=== PATIENT | male | born 1955 | race Caucasian/White ===

== ENCOUNTER 2020-09-29 09:44 | Day surgery (SDC) | payer MEDICARE, OTHER ==
[~2020-09-29] VITALS: Ht 185.4 cm; Wt 99.8 kg
--- NOTE | 2020-09-29 10:00 | NUR ---
iv inserted 20g RAC. Blood drawn sent to the lab. Patient tolerated the procedure.
[2020-09-29 10:07] LABS: BASOPHILS # (AUTO) 0.1 /CMM (0.0-0.2); BASOPHILS % (AUTO) 1.2 % (0.0-2.0); EOSINOPHILS % (AUTO) 4.2 % (0.0-6.0); HEMATOCRIT 41 % (39-51); HEMOGLOBIN 13.7 g/dL (13.5-17.5); LYMPHOCYTES # (AUTO) 1.8 /CMM (0.8-4.8); LYMPHOCYTES % (AUTO) 31.2 % (20.0-44.0); MEAN CORPUSCULAR HGB CONC 33 g/dl (31.0-36.0); MEAN CORPUSCULAR VOLUME 81 fL (80-96); MONOCYTES # (AUTO) 0.5 /CMM (0.1-1.30); MONOCYTES % (AUTO) 9.2 % (2.0-12.0); NEUTROPHILS # (AUTO) 3.1 /CMM (1.8-8.9); NEUTROPHILS % (AUTO) 54.2 % (43.0-81.0); PLATELET COUNT (AUTO) 174 /CMM (150-450); RED BLOOD CELL COUNT(AUTO) 5.11 MIL/uL (4.5-6.0); WHITE BLOOD COUNT (AUTO) 5.8 K/uL (4.3-11.0)
[2020-09-29 10:13] LABS: CALCIUM, SERUM 9.2 mg/dL (8.5-10.1); CREATININE 0.8 mg/dL (0.6-1.3); POTASSIUM 4.4 mmol/L (3.5-5.1)
[2020-09-29 10:16] VITALS: BP 158/89
[2020-09-29 10:19] LABS: ALBUMIN 3.9 g/dL (3.4-5.0); BILIRUBIN,TOTAL 0.6 mg/dL (0.2-1.0); TOTAL PROTEIN, SERUM 7.4 g/dL (6.4-8.2)
[2020-09-29] MEDS ORDERED: LIDOCAINE HCL/MPF 1% 30 ML VIAL IJ ONE (10:45)
[2020-09-29] MEDS ORDERED: IODIXANOL 150 ML IV ONE (10:46)
[2020-09-29] MEDS ORDERED: IV NS 0.9% 1,000 ML ONE (10:46)
[2020-09-29] MEDS ORDERED: NITROGLYCERIN ICAR 1,000 MCG/10 ML VIAL ICAR ONE (11:05)
[2020-09-29] MEDS ORDERED: FENTANYL PF 100MCG/2ML AMPUL ONE (11:05)
--- NOTE | 2020-09-29 12:58 | NUR ---
MS RN ADMITTING NOTES PT TRANSPORTED TO UNIT BY [facility] AT THIS TIME. RECEIVED REPORT FROM STONEY LERMA @ SAMPLE EXAMINER. PT AOX4. NO SOB NOTED, NO S/O OF ANY ACUTE DISTRESS NOTED, NO C/O PAIN AT THIS TIME. SKIN IS INTACT AND WARM TO TOUCH, ACTIVE BOWEL SOUNDS AUSCULTATED THROUGHOUT, LUNGS ARE CLEAR TO AUSCULTATION. PT NOTED WITH TR BAND. NO SS/O BLEEDING NOTED. PULSES PRESENT BILATERALLY, CAPILLARY REFILL <3SECONDS. IV ACCESS NOTED IN RAC G#20, INTACT, PATENT AND FLUSHING WELL. SKIN INTACT. BELONGINGS ACCOUNTED FOR AND SIGNED BY PATIENT. PT ORIENTED TO ROOM AND INSTRUCTED TO CALL FOR ASSISTANTS. PT VERBALIZE UNDERSTANDING. ASPIRATION AND SAFETY PRECAUTIONS IN PLACE AND MAINTAINED AT ALL TIMES. BED IN LOWEST LOCKED POSITION, HOB ELEVATED, SIDE RAILS UP X2, CALL LIGHT AND TABLE WITHIN REACH. WILL CONTINUE TO MONITOR
--- NOTE | 2020-09-29 13:00 | NUR ---
VS BP 144/74, HR 46, RR 18, T 97.8, SPO2 96 ON RA. 3ML RELEASE FROM TR BAND, NO S/O BLEEDING NOTED. GOOD CIRCULATION NOTED, PULSES PRESENT BILATERALLY, CAPILLARY REFILL <3SECONDS. WILL CONTINUE WITH PLAN OF CARE
--- NOTE | 2020-09-29 13:15 | NUR ---
VS BP 134/72, HR 46, RR 18, T 98.8, SPO2 97 ON RA. 4ML RELEASE FROM TR BAND, NO S/O BLEEDING NOTED. GOOD CIRCULATION NOTED, PULSES PRESENT BILATERALLY, CAPILLARY REFILL <3SECONDS. WILL CONTINUE WITH PLAN OF CARE
--- NOTE | 2020-09-29 13:30 | NUR ---
VS BP 128/66 HR 44, RR 20, T 97.9, SPO2 97 ON RA. 3ML RELEASE FROM TR BAND, NO S/O BLEEDING NOTED. GOOD CIRCULATION NOTED, PULSES PRESENT BILATERALLY, CAPILLARY REFILL <3SECONDS. NO MOTOR/ SENSORY DEFICIT NOTED. WILL CONTINUE WITH PLAN OF CARE
--- NOTE | 2020-09-29 13:45 | NUR ---
VS BP 135/75 HR 44, RR 18, T 98.0, SPO2 95 ON RA. 3ML RELEASE FROM TR BAND, NO S/O BLEEDING NOTED. GOOD CIRCULATION NOTED, PULSES PRESENT BILATERALLY, CAPILLARY REFILL <3SECONDS. NO MOTOR/ SENSORY DEFICIT NOTED. WILL CONTINUE WITH PLAN OF CARE
--- NOTE | 2020-09-29 14:00 | NUR ---
VS BP 154/74 HR 42, RR 18, T 98.4, SPO2 96 ON RA. 3ML AIR RELEASE FROM TR BAND, NO S/O BLEEDING NOTED. GOOD CIRCULATION NOTED, PULSES PRESENT BILATERALLY, CAPILLARY REFILL <3SECONDS. NO MOTOR/ SENSORY DEFICIT NOTED. WILL CONTINUE WITH PLAN OF CARE. TR BAND REMOVED AFTER DEFLATION ORDER, PROCEDURE TOLERATED WELL. NO SIGNS OF COMPLICATIONS NOTED. NO SIGNS OF BLEEDING, WITH DRESSING APPLIED TO PREVIOUS INSERTION SITE.
--- NOTE | 2020-09-29 15:50 | NUR ---
COMPUTER MECHANIC NOTED PT DISCHARGE HOME AT THIS TIME. PT MEDICALLY STABLE AND CLEARED FOR DISCHARGE BY DR BLEDSOE. ALL DISCHARGE INSTRUCTIONS PROVIDED TO PT AND AT BEDSIDE. PT VERBALIZED UNDERSTANDING. PT KEPT CLEAN AND DRY. ALL BELONGINGS WITH PATIENT. TR BAND AND IV ACCESS REMOVED, PRESSURE APPLIED, SECURED WITH GAUZE AND TAPE, NO SIGN OF BLEEDING OR INFILTRATION NOTED. PT LEFT UNIT IN STABLE CONDITION, TRANSPORTED BY WHEEL CHAIR TO [facility] BY [facility]. PICKED UP BY . ANABEL, CHARGE NURSE AND DR BLEDSOE AWARE
== END 2020-09-29 15:45 | disposition home or self-care (01) ==
LOC: CATHLAB 09:44
PROVIDERS: ATTEND Internal Medicine
DX: I25.10 Atherosclerotic heart disease of native coronary artery without angina pectoris (principal); T82.855A Stenosis of coronary artery stent, initial encounter; Y71.3 Surgical instruments, materials and cardiovascular devices (including sutures) associated with adverse incidents
CPT/HCPCS: 36415; 80053; 85025; 85610; 85730; 93005; 93458; 99152; J1644; J3010; J3490; Q9967

== ENCOUNTER 2021-07-14 08:54 | Outpatient (CLI) | payer MEDICARE ==
[2021-07-14 10:04] LABS: CALCIUM, SERUM 8.6 mg/dL (8.5-10.1); POTASSIUM 4.1 mmol/L (3.5-5.1)
[2021-07-14] MEDS ORDERED: IOHEXOL-350 100 ML VIAL IV ONE (11:04)
[2021-07-14] MEDS ORDERED: IV NS 0.9% 250 ML IV ONE (11:04)
[2021-07-14] MEDS ORDERED: CT SWABBABLE VALVE TRANS SET 1 EA INFUS.SET MC ONE (11:04)
== END 2021-07-14 23:59 | disposition home or self-care (01) ==
LOC: CT 08:54
PROVIDERS: ATTEND Internal Medicine Interventional Cardiology
DX: K80.20 Calculus of gallbladder without cholecystitis without obstruction (principal); K57.30 Diverticulosis of large intestine without perforation or abscess without bleeding; I25.10 Atherosclerotic heart disease of native coronary artery without angina pectoris; I51.7 Cardiomegaly; J98.11 Atelectasis; J90 Pleural effusion, not elsewhere classified; R94.4 Abnormal results of kidney function studies; I70.0 Atherosclerosis of aorta; M46.00 Spinal enthesopathy, site unspecified; R60.1 Generalized edema
CPT/HCPCS: 36415; 74174; 80048; J7050; Q9967

== ENCOUNTER 2021-08-04 13:00 | Inpatient (IN) | payer MEDICARE, OTHER ==
[~2021-08-04] VITALS: Ht 185.4 cm; Wt 99.8 kg
--- NOTE | 2021-08-04 13:00 | NUR ---
DR FUNES AT BEDSIDE
[2021-08-04] MEDS ORDERED: FUROSEMIDE 40 MG/4 ML VIAL ONE (13:12)
[2021-08-04] MEDS ORDERED: FUROSEMIDE 40 MG/4 ML VIAL IV ONE (13:30)
[2021-08-04 13:42] LABS: BASOPHILS # (AUTO) 0.1 K/uL (0.0-0.2); BASOPHILS % (AUTO) 1.2 % (0.0-2.0); EOSINOPHILS % (AUTO) 0.9 % (0.0-6.0); HEMATOCRIT 42 % (39-51); HEMOGLOBIN 13.2 g/dL (13.5-17.5); LYMPHOCYTES # (AUTO) 1.1 K/uL (0.8-4.8); LYMPHOCYTES % (AUTO) 15.9 % (20.0-44.0); MEAN CORPUSCULAR HGB CONC 32 g/dl (31.0-36.0); MEAN CORPUSCULAR VOLUME 81 fL (80-96); MONOCYTES # (AUTO) 0.7 K/uL (0.1-1.30); MONOCYTES % (AUTO) 10.7 % (2.0-12.0); NEUTROPHILS # (AUTO) 4.8 K/uL (1.8-8.9); NEUTROPHILS % (AUTO) 71.3 % (43.0-81.0); PLATELET COUNT (AUTO) 177 K/uL (150-450); RED BLOOD CELL COUNT(AUTO) 5.18 MIL/uL (4.5-6.0); WHITE BLOOD COUNT (AUTO) 6.7 K/uL (4.3-11.0)
[2021-08-04 14:06] LABS: CALCIUM, SERUM 8.9 mg/dL (8.5-10.1); CARBON DIOXIDE 33 mmol/L (21-32); CHLORIDE 95 mmol/L (98-107); CREATININE 1.2 mg/dL (0.6-1.3); GLUCOSE 148 mg/dL (74-106); POTASSIUM 3.4 mmol/L (3.5-5.1); SODIUM SERUM 136 mmol/L (136-145); UREA NITROGEN, BLOOD 18 mg/dL (7-18)
[2021-08-04] MEDS ORDERED: AMOX500C2 PO (14:13)
[2021-08-04] MEDS ORDERED: ISOS60TA72 PO (14:13)
[2021-08-04] MEDS ORDERED: METO5TAB2 PO (14:13)
[2021-08-04] MEDS ORDERED: SITA100T PO (14:13)
[2021-08-04] MEDS ORDERED: FAMO40TA7 PO (14:13)
[2021-08-04] MEDS ORDERED: EMPA25TA PO (14:13)
[2021-08-04] MEDS ORDERED: OMEP40CA21 PO (14:13)
[2021-08-04] MEDS ORDERED: GABA-532 PO (14:13)
[2021-08-04] MEDS ORDERED: FURO80TA85 PO (14:13)
[2021-08-04] MEDS ORDERED: FLUT1BLS PO (14:13)
[2021-08-04] MEDS ORDERED: FINA5TAB11 PO (14:13)
[2021-08-04] MEDS ORDERED: TESTOSTERONE PO (14:13)
[2021-08-04] MEDS ORDERED: LEVO100T9 PO (14:13)
--- NOTE | 2021-08-04 14:16 | NUR ---
CALLED NURSING SUP REGARDING PT BED
[2021-08-04 14:17] LABS: ALANINE AMINOTRANSFERASE 22 U/L (12-78); ALBUMIN 3.9 g/dL (3.4-5.0); ALKALINE PHOSPHATASE 158 U/L (46-116); ASPARTATE AMINOTRANSFERASE 19 U/L (15-37); BILIRUBIN,DIRECT 0.5 mg/dL (0.0-0.2); BILIRUBIN,TOTAL 1.2 mg/dL (0.2-1.0); TOTAL PROTEIN, SERUM 7.6 g/dL (6.4-8.2)
--- NOTE | 2021-08-04 14:20 | NUR ---
RAPID COVID SWAB DONE AND SENT TO LAB
[2021-08-04] MEDS ORDERED: MAG HYDROX/AL HYDROX/SIMETH 30 ML UDC PO PRN (14:30)
[2021-08-04] MEDS ORDERED: Z GUARD REMEDY 4 OZ OINT TP PRN (14:30)
[2021-08-04] MEDS ORDERED: ACETAMINOPHEN 325 MG TABLET PO PRN (14:30)
[2021-08-04] MEDS ORDERED: MAGNESIUM HYDROXIDE 30 ML UDC PO PRN (14:30)
--- NOTE | 2021-08-04 16:42 | NUR ---
ROOM 322-2
[2021-08-04] MEDS ORDERED: FUROSEMIDE 40 MG/4 ML VIAL IV SCH (17:00)
--- NOTE | 2021-08-04 17:09 | NUR ---
REPORT GIVEN TO AJKE LUA OF TELE UNIT
--- NOTE | 2021-08-04 17:45 | NUR ---
ETCHER APPRENTICE PHOTOENGRAVING NOTE RECEIVED PATIENT FROM ER TRANSPORTED VIA GURNEY ACCOMPANIED BY 2 NURSES. PATIENT IS ALERT AND ORIENTED X4. ON ROOM AIR WITH NO SIGNS OF DISTRESS NOTED. PATIENT WITH RIGHT AC G18, ON SALINE LOCK, PATENT AND INTACT. NOTED BOTH LOWER EXTREMITY NON-PITTING EDEMA. COMFORT MEASURES PROVIDED. ON MODERATE TO HIGH BACK REST. ENCOURAGED TO DO DEEP BREATHING EXERCISES. MD NOTIFIED OF ADMISSION. SAFETY MEASURES ENSURED WITH SIDERAILS RAISED FOR SAFETY, BED ON LOWEST LOCKED POSITION, CALL LIGHT WITHIN REACH AT ALL TIMES. WILL CONTINUE TO MONITOR PATIENT.
--- NOTE | 2021-08-04 19:16 | NUR ---
DIRECTOR OF MARKETING OPERATIONS CLOSING NOTE PATIENT IS ALERT AND ORIENTED X4. ON ROOM AIR WITH NO SIGNS OF DISTRESS NOTED. PATIENT WITH RIGHT AC G18, ON SALINE LOCK, PATENT AND INTACT. ON DUPLICATING MACHINE OPERATOR, READING SINUS WITH FIRST DEGREE BLOCK. NOTED BOTH LOWER EXTREMITY NON-PITTING EDEMA. COMFORT MEASURES PROVIDED. ON MODERATE TO HIGH BACK REST. ENCOURAGED TO DO DEEP BREATHING EXERCISES. FUROSEMIDE GIVEN ORDERED. VS WNL. SAFETY MEASURES ENSURED WITH SIDERAILS RAISED FOR SAFETY, BED ON LOWEST LOCKED POSITION, CALL LIGHT WITHIN REACH AT ALL TIMES. WILL ENDORSE PATIENT FOR CONTINUITY OF CARE.
[2021-08-04 20:00] VITALS: BP 109/75
--- NOTE | 2021-08-04 20:05 | NUR ---
TRUCKLOAD CHECKER OPENING NOTES: RECEIVED PATIENT AWAKE IN BED, BED IN LOW POSITION CALL LIGHTS WITHIN REACH, NO COMPLAIN OF PAIN AND DISCOMFORT AT THIS TIME, PATIENT IS A/OX4 BRP, ON TELE MONITORING SR-88 WITH BBB AND PVC PATIENT IS ASYMPTOMATIC, PATIENT, ON ROOM AIR SATURATING WELL, REMIND PATIENT TO USE THE CALL LIGHTS WHEN NEEDED ASSISTANCE, PATIENT KEPT CLEAN AND DRY ALL NEEDS MET WILL CONTINUE TO MONITOR.
[2021-08-04 21:17] VITALS: BP 109/75
[2021-08-04] MEDS: MORPHINE SULFATE INJ 2 MG/ML DISP.SYRIN IV PRN (23:13)
[2021-08-05] VITALS (8 sets, daily range): BP systolic 97–137; BP diastolic 58–100
[2021-08-05] MEDS: MORPHINE SULFATE INJ 2 MG/ML DISP.SYRIN IV PRN (04:18)
--- NOTE | 2021-08-05 06:25 | NUR ---
SERVICES MANAGER CLOSING NOTES:322 PATIENT AWAKE IN BED, NO COMPLAIN OF PAIN AND DISCOMFORT PATIENT IS A/OX4 AMBULATORY ABLE TO EXPRESS NEEDS, WITH IV LINE AT RAC#18 SL, ON TELE MONITORING -, SR 73 WITH BBB ON O2 INHALATION AT 2LPM SATURATING WELL, PATIENT KEPT CLEAN AND DRY ALL NEEDS MET ENDORSE TO INCOMING SHIFT.
[2021-08-05 06:36] LABS: CALCIUM, SERUM 9.1 mg/dL (8.5-10.1); CREATININE 1.4 mg/dL (0.6-1.3); MAGNESIUM 2.9 mg/dL (1.8-2.4); PHOSPHORUS 5.4 mg/dL (2.5-4.9); POTASSIUM 3.4 mmol/L (3.5-5.1)
[2021-08-05 07:31] LABS: BASOPHILS # (AUTO) 0.1 K/uL (0.0-0.2); EOSINOPHILS % (AUTO) 0.4 % (0.0-6.0); HEMATOCRIT 43 % (39-51); HEMOGLOBIN 13.5 g/dL (13.5-17.5); LYMPHOCYTES # (AUTO) 1.3 K/uL (0.8-4.8); LYMPHOCYTES % (AUTO) 18.2 % (20.0-44.0); MEAN CORPUSCULAR HGB CONC 32 g/dl (31.0-36.0); MEAN CORPUSCULAR VOLUME 81 fL (80-96); MONOCYTES # (AUTO) 0.8 K/uL (0.1-1.30); MONOCYTES % (AUTO) 11.5 % (2.0-12.0); NEUTROPHILS # (AUTO) 4.9 K/uL (1.8-8.9); NEUTROPHILS % (AUTO) 68.9 % (43.0-81.0); PLATELET COUNT (AUTO) 192 K/uL (150-450); RED BLOOD CELL COUNT(AUTO) 5.26 MIL/uL (4.5-6.0); WHITE BLOOD COUNT (AUTO) 7.2 K/uL (4.3-11.0)
--- NOTE | 2021-08-05 07:38 | NUR ---
RN OPENING NOTES PATIENT AWAKE IN BED RESTING, A/O X4. NO S/S OF PAIN NOTED AT THIS TIME. PATIENT ON ROOM AIR, NO DISTRESS OR SHORTNESS OF BREATH. IV ACCESS RAC #18G INTACT, PATENT AND FLUSHING WELL. PATIENT HAS AN EXTERNAL BUILDING TRADES TEACHER CURRENT READING OF S.R WITH BBB AND PVC, HR OF 88. FALL AND SAFETY MEASURES IN PLACE, BED ALARM ON, BED IN LOW AND LOCK POSITION, CALL LIGHT AND TABLE WITHIN EASY REACH, SIDE RAILS UP X2. WILL CONTINUE TO MONITOR.
[2021-08-05] MEDS: PANTOPRAZOLE 40 MG TABLET.DR PO SCH (08:02)
[2021-08-05] MEDS: LEVOTHYROXINE SODIUM 100 MCG TABLET PO SCH (08:02)
[2021-08-05] MEDS: ONDANSETRON HCL/PF 4 MG/2 ML VIAL IVP PRN ×2 (09:14→15:39)
[2021-08-05] MEDS: FLUTICASONE/VILANTEROL 1 EACH BLST.W.DEV IH SCH (09:17)
[2021-08-05] MEDS: ISOSORBIDE MONONITRATE (30MG) 30 MG TAB.SR.24H PO SCH (09:18)
[2021-08-05] MEDS: LINAGLIPTIN 5 MG TABLET PO SCH (09:18)
[2021-08-05] MEDS: METOCLOPRAMIDE HCL 10 MG TABLET PO SCH ×2 (09:18→17:21)
[2021-08-05] MEDS: POTASSIUM CHLORIDE 20 MEQ TAB.PRT.SR PO SCH ×3 (09:18→12:43)
[2021-08-05] MEDS: GABAPENTIN 100 MG CAPSULE PO SCH ×2 (09:19→17:21)
[2021-08-05] MEDS: FUROSEMIDE 100 MG/10 ML VIAL IV SCH ×3 (09:26→17:20)
--- NOTE | 2021-08-05 09:30 | NUR ---
RN NOTE LAB CALLED WITH CRITICAL LAB VALUE, PATIENT HAVE TROPONIN I HIGH SENSE: 831. DR. FERNANDES WAS INFORMED AND HE ORDERED ANOTHER TROPONIN IN 3 HOURS.
[2021-08-05] MEDS: JARDIANCE 25 MG PO SCH (14:26)
--- NOTE | 2021-08-05 14:49 | NUR ---
RN NOTE PATIENT LAST TROPONIN WAS 1354, DR. FERNANDES WAS INFORMED AND HE ORDERED LOVENOX 1MG/KG BID.
[2021-08-05] MEDS: ENOXAPARIN SODIUM 100 MG/ML DISP.SYRIN SQ SCH (15:37)
--- NOTE | 2021-08-05 18:46 | NUR ---
RN CLOSING NOTES PATIENT AWAKE IN BED RESTING, A/O X4. NO S/S OF PAIN NOTED AT THIS TIME. PATIENT ON ROOM AIR, NO DISTRESS OR SHORTNESS OF BREATH. IV ACCESS RAC #18G INTACT, PATENT AND FLUSHING WELL. PATIENT HAS AN EXTERNAL COMPO CASTER CURRENT READING OF S.R WITH BBB AND PVC, HR OF 57. PATIENT URINE OUTPUT DURING SHIFT WAS 1000ML. FALL AND SAFETY MEASURES IN PLACE, BED ALARM ON, BED IN LOW AND LOCK POSITION, CALL LIGHT AND TABLE WITHIN EASY REACH, SIDE RAILS UP X2. WILL ENDORSE TO DINING SERVICES DIRECTOR.
--- NOTE | 2021-08-05 19:05 | NUR ---
RN NOTES: -RECEIVED ASLEEP ON BED, PER ENDORSEMENT HE IS A/OX4, ON TELE MONITOR SB-BBB WITH ST DEPRESSION RATE-59, NO PAIN OR DISCOMFORT AT THIS TIME.HE IS AMBULATORY, RAC G#18 INTACT, NO ABDOMINAL PAIN PER MORNING SHIFT HE RECEIVED ZOFRAN PRN. -HE WAS AWAKEN AND RN INTRODUCE HERSELF,ORIENTED TO UNIT AND STAFF, VERY PLEASANT MOOD, FOR MORNING LABS TOMORROW. FALL,SAFETY AND ASPIRATION PRECAUTION OBSERVED.
[2021-08-05] MEDS: FAMOTIDINE (20 MG) 20 MG TABLET PO SCH (21:46)
[2021-08-05] MEDS: FINASTERIDE (5 MG) 5 MG TABLET PO SCH (21:47)
--- NOTE | 2021-08-05 23:58 | NUR ---
RN NOTES: AWAKE, NO COMPLAINTS OF PAIN OR ANY DISCOMFORT, NO DIZZINESS, BP IS 90/67, HE SIT ON THE EDGE OF THE BED AND DANGLE HIS FEET DOWN, GIVEN 1 GLASS OF WATER, THEN HE RETURNED BACK TO SLEEP.
[2021-08-06] VITALS: BP 90/67
[2021-08-06] MEDS: ENOXAPARIN SODIUM 100 MG/ML DISP.SYRIN SQ SCH ×2 (02:07→15:43)
[2021-08-06 04:00] VITALS: BP 102/63
[2021-08-06] MEDS: LEVOTHYROXINE SODIUM 100 MCG TABLET PO SCH (06:10)
[2021-08-06 07:20] LABS: BASOPHILS # (AUTO) 0.1 K/uL (0.0-0.2); BASOPHILS % (AUTO) 1.2 % (0.0-2.0); HEMATOCRIT 40 % (39-51); HEMOGLOBIN 12.9 g/dL (13.5-17.5); LYMPHOCYTES # (AUTO) 1.7 K/uL (0.8-4.8); LYMPHOCYTES % (AUTO) 23.2 % (20.0-44.0); MEAN CORPUSCULAR HGB CONC 32 g/dl (31.0-36.0); MEAN CORPUSCULAR VOLUME 80 fL (80-96); MONOCYTES # (AUTO) 0.9 K/uL (0.1-1.30); MONOCYTES % (AUTO) 12.5 % (2.0-12.0); NEUTROPHILS # (AUTO) 4.5 K/uL (1.8-8.9); NEUTROPHILS % (AUTO) 62.1 % (43.0-81.0); PLATELET COUNT (AUTO) 171 K/uL (150-450); RED BLOOD CELL COUNT(AUTO) 4.99 MIL/uL (4.5-6.0); WHITE BLOOD COUNT (AUTO) 7.3 K/uL (4.3-11.0)
--- NOTE | 2021-08-06 07:22 | NUR ---
RN NOTES: AWAKE IN BETWEEN, HE SITS BY THE BED SIDE CHAIR, O2 INHALATION CONTINUE, NO CHEST PAIN, NEEDS ATTENDED, V/S REMAIN STABLE, FOR CXR AND LABS THIS MORNING, F/U ECHO RESULT, ADEQUATE URINE OUTPUT-1,40O, BBB WITH ST DEPRESSION RATE=62.ENDORSED FOR CONTINUITY OF CARE.
--- NOTE | 2021-08-06 07:33 | NUR ---
RN OPENING NOTES PATIENT AWAKE IN BED RESTING, A/O X4. NO S/S OF PAIN NOTED AT THIS TIME. PATIENT ON ROOM AIR, NO DISTRESS OR SHORTNESS OF BREATH. IV ACCESS RAC #18G INTACT, PATENT AND FLUSHING WELL. PATIENT HAS AN EXTERNAL VESSEL SCRAPPER HELPER CURRENT READING OF S.R WITH BBB AND PVC, HR OF 59. FALL AND SAFETY MEASURES IN PLACE, BED ALARM ON, BED IN LOW AND LOCK POSITION, CALL LIGHT AND TABLE WITHIN EASY REACH, SIDE RAILS UP X2. WILL CONTINUE TO MONITOR.
[2021-08-06 07:59] LABS: ALBUMIN 3.5 g/dL (3.4-5.0); BILIRUBIN,TOTAL 1.3 mg/dL (0.2-1.0); CALCIUM, SERUM 8.7 mg/dL (8.5-10.1); CREATININE 1.5 mg/dL (0.6-1.3); MAGNESIUM 2.9 mg/dL (1.8-2.4); POTASSIUM 4.4 mmol/L (3.5-5.1); TOTAL PROTEIN, SERUM 6.6 g/dL (6.4-8.2)
[2021-08-06] MEDS: FLUTICASONE/VILANTEROL 1 EACH BLST.W.DEV IH SCH (08:59)
[2021-08-06] MEDS: GABAPENTIN 100 MG CAPSULE PO SCH ×2 (08:59→17:25)
[2021-08-06] MEDS: METOCLOPRAMIDE HCL 10 MG TABLET PO SCH ×2 (08:59→17:25)
[2021-08-06] MEDS: PANTOPRAZOLE 40 MG TABLET.DR PO SCH (09:02)
[2021-08-06] MEDS: LINAGLIPTIN 5 MG TABLET PO SCH (09:02)
[2021-08-06] MEDS: FUROSEMIDE 100 MG/10 ML VIAL IV SCH ×3 (09:54→17:26)
[2021-08-06] MEDS: ISOSORBIDE MONONITRATE (30MG) 30 MG TAB.SR.24H PO SCH (09:54)
--- NOTE | 2021-08-06 11:00 | NUR ---
RN NOTE LAB CALLED WITH CRITICAL LAB VALUE, PATIENT HAVE TROPONIN I HIGH SENSE: 2260. DR. FERNANDES WAS INFORMED AND NO NEW ORDERS AT THIS MOMENT.
[2021-08-06] MEDS: JARDIANCE 25 MG PO SCH (13:20)
--- NOTE | 2021-08-06 13:21 | NUR ---
RN NOTES PATIENT HOME MEDICATION JARDIANCE WAS GIVEN LATE BECAUSE PATIENT MEDICATION WAS NOT IN THE PATENT MEDICATION BOX, PHARMACY WAS CALLED AND MEDICATION WAS GIVEN WHEN THE MEDICATION WAS DELIVERED.
--- NOTE | 2021-08-06 17:50 | NUR ---
RN NOTE PATIENT COMPLAINED OF CHEST PAIN, EKG WAS ORDERED AND SENT PICTURES TO DR. FERNANDES, DR. FERNANDES WAS NOTIFIED OF PATIENT EPISODE OF CHEST PAIN, V/S BP:101/59, P:70, R:19, T:98.1, O2:97, IN TELE MONITOR PATIENT IS S.R. HR OF 72. AT THE MOMENT PATIENT IS COMFORTABLE IN ROOM EATING HIS DINNER. NO NEW ORDERS PER DR. FERNANDES AT THIS MOMENT. WILL CONTINUE TO MONITOR.
--- NOTE | 2021-08-06 18:53 | NUR ---
RN CLOSING NOTES PATIENT AWAKE IN BED RESTING, A/O X4. NO S/S OF PAIN NOTED AT THIS TIME. PATIENT ON ROOM AIR, NO DISTRESS OR SHORTNESS OF BREATH. IV ACCESS RAC #18G INTACT, PATENT AND FLUSHING WELL. PATIENT HAS AN EXTERNAL NARROW FABRIC CALENDERER CURRENT READING OF S.R WITH BBB AND PVC, HR OF 76. PATIENT URINE OUTPUT DURING SHIFT WAS 800ML. FALL AND SAFETY MEASURES IN PLACE, BED ALARM ON, BED IN LOW AND LOCK POSITION, CALL LIGHT AND TABLE WITHIN EASY REACH, SIDE RAILS UP X2. WILL ENDORSE TO DISHING MACHINE OPERATOR.
[2021-08-06 20:30] VITALS: BP 112/67
[2021-08-06] MEDS: FINASTERIDE (5 MG) 5 MG TABLET PO SCH (21:15)
[2021-08-06] MEDS: FAMOTIDINE (20 MG) 20 MG TABLET PO SCH (21:15)
[2021-08-07] MEDS: ENOXAPARIN SODIUM 100 MG/ML DISP.SYRIN SQ SCH ×2 (03:55→14:11)
[2021-08-07 04:21] VITALS: BP 98/57
[2021-08-07 06:17] LABS: BASOPHILS # (AUTO) 0.1 K/uL (0.0-0.2); EOSINOPHILS % (AUTO) 2.2 % (0.0-6.0); HEMATOCRIT 39 % (39-51); HEMOGLOBIN 12.4 g/dL (13.5-17.5); LYMPHOCYTES # (AUTO) 1.9 K/uL (0.8-4.8); LYMPHOCYTES % (AUTO) 25.7 % (20.0-44.0); MEAN CORPUSCULAR HGB CONC 32 g/dl (31.0-36.0); MEAN CORPUSCULAR VOLUME 81 fL (80-96); MONOCYTES # (AUTO) 0.9 K/uL (0.1-1.30); MONOCYTES % (AUTO) 12.9 % (2.0-12.0); NEUTROPHILS # (AUTO) 4.2 K/uL (1.8-8.9); NEUTROPHILS % (AUTO) 57.2 % (43.0-81.0); PLATELET COUNT (AUTO) 156 K/uL (150-450); RED BLOOD CELL COUNT(AUTO) 4.79 MIL/uL (4.5-6.0); WHITE BLOOD COUNT (AUTO) 7.3 K/uL (4.3-11.0)
[2021-08-07] MEDS: PANTOPRAZOLE 40 MG TABLET.DR PO SCH (06:38)
[2021-08-07] MEDS: LEVOTHYROXINE SODIUM 100 MCG TABLET PO SCH (06:38)
--- NOTE | 2021-08-07 06:59 | NUR ---
Patient has been A&Ox4 overnight. states he is feeling much better than the day of admission. denies CP or SOB, only states that he feels a little fatigued. SR with trigeminy BBB on the monitor overnight. 227 daily weight. intake 300ml output 1100ml. Currently resting in bed with no signs of distress. Denies pain or discomfort.
[2021-08-07 07:24] LABS: ALBUMIN 3.1 g/dL (3.4-5.0); CREATININE 1.5 mg/dL (0.6-1.3); MAGNESIUM 2.8 mg/dL (1.8-2.4); PHOSPHORUS 4.2 mg/dL (2.5-4.9); POTASSIUM 3.4 mmol/L (3.5-5.1); TOTAL PROTEIN, SERUM 6.2 g/dL (6.4-8.2)
--- NOTE | 2021-08-07 07:30 | NUR ---
RN OPENING NOTES PATIENT AWAKE IN SITTING AT EDGE OF BED. A/O X4. NO S/S OF PAIN NOTED AT THIS TIME. PATIENT ON ROOM AIR, NO DISTRESS OR SHORTNESS OF BREATH. IV ACCESS RAC #18G PATENT AND INTACT, FLUSHING WELL. PATIENT HAS AN EXTERNAL NETWORK ENGINEERING ADVISOR CURRENT READING OF SR 76. FALL AND SAFETY MEASURES IN PLACE, BED ALARM ON, BED IN LOW AND LOCK POSITION, CALL LIGHT AND TABLE WITHIN EASY REACH, SIDE RAILS UP X2. WILL CONTINUE TO MONITOR PT THROUGHOUT SHIFT.
--- NOTE | 2021-08-07 07:42 | NUR ---
RN NOTE RECEIVED CALL FROM ED, LAB. CRITICAL LAB VALUE REPORTED: TROPONIN 995. MD AND CHARGE NURSE NOTIFIED.
[2021-08-07 08:00] VITALS: BP 111/82
[2021-08-07] MEDS: FLUTICASONE/VILANTEROL 1 EACH BLST.W.DEV IH SCH (08:49)
[2021-08-07] MEDS: METOCLOPRAMIDE HCL 10 MG TABLET PO SCH ×2 (08:49→16:23)
[2021-08-07] MEDS: LINAGLIPTIN 5 MG TABLET PO SCH (08:49)
[2021-08-07] MEDS: JARDIANCE 25 MG PO SCH (08:49)
[2021-08-07] MEDS: GABAPENTIN 100 MG CAPSULE PO SCH ×2 (08:49→16:23)
[2021-08-07] MEDS: ISOSORBIDE MONONITRATE (30MG) 30 MG TAB.SR.24H PO SCH (08:51)
[2021-08-07] MEDS: POTASSIUM CHLORIDE 20 MEQ TAB.PRT.SR PO SCH ×3 (09:46→10:53)
[2021-08-07] MEDS: FUROSEMIDE 100 MG/10 ML VIAL IV SCH ×3 (09:47→16:23)
[2021-08-07 12:00] VITALS: BP 108/62
[2021-08-07 16:00] VITALS: BP 111/78
--- NOTE | 2021-08-07 18:46 | NUR ---
RN CLOSING NOTES PATIENT IS AWAKE IN BED WITH ECHOCARDIOGRAM CURRENTLY BEING DONE AT BEDSIDE. NO SIGNIFICANT CHANGE DURING SHIFT. GARAGE DOOR OPENER INSTALLER REPORTED OCCASIONAL PVCS. PTS CURRENT TELE MONITOR READING IS SR WITH PVC CUPLETS. IV ACCESS RAC #18G PATENT AND INTACT, FLUSHING WELL. FALL AND SAFETY MEASURES MAINTAINED. CALL LIGHT AND TABLE WITHIN EASY REACH, SIDE RAILS UP X2. WILL ENDORSE CONTINUITY OF CARE TO ONCOMING SHIFT.
--- NOTE | 2021-08-07 19:40 | NUR ---
Patient is A&Ox4, no signs of distress. However, patient does say he gets SOB upon exertion but feels much better and customs brokerage agent than a couple days ago. Feels tired after a long day and wants to sleep well tonight per patient. Will continue to monitor.
[2021-08-07 20:00] VITALS: BP 110/78
[2021-08-07] MEDS: FINASTERIDE (5 MG) 5 MG TABLET PO SCH (20:12)
[2021-08-07] MEDS: FAMOTIDINE (20 MG) 20 MG TABLET PO SCH (20:12)
--- NOTE | 2021-08-07 20:12 | NUR ---
Per patient request HS meds given early because pt. wants to be asleep before 9pm.
--- NOTE | 2021-08-08 | NUR ---
Patient refusing midnight vitals says he is trying to get a good night of sleep. States he feels fine.
[2021-08-08] MEDS: ENOXAPARIN SODIUM 100 MG/ML DISP.SYRIN SQ SCH (02:16)
[2021-08-08 04:00] VITALS: BP_SYST 121; BP_SYST 144; BP_DIAS 73; BP_DIAS 85
[2021-08-08] MEDS: LEVOTHYROXINE SODIUM 100 MCG TABLET PO SCH (06:34)
[2021-08-08] MEDS: PANTOPRAZOLE 40 MG TABLET.DR PO SCH (06:34)
--- NOTE | 2021-08-08 06:36 | NUR ---
Patient stable still A&Ox4. Just woke up. States he feels fine but tired and fatigued. Sb/SR with BBB and PVC bigeminy at times. RAC #18G still intact and patent. No overnight events. Daily weight 223.5. Intake 450 output 800mL.
[2021-08-08 06:42] LABS: BASOPHILS # (AUTO) 0.1 K/uL (0.0-0.2); BASOPHILS % (AUTO) 1.3 % (0.0-2.0); EOSINOPHILS % (AUTO) 2.4 % (0.0-6.0); HEMATOCRIT 39 % (39-51); HEMOGLOBIN 12.1 g/dL (13.5-17.5); LYMPHOCYTES # (AUTO) 1.6 K/uL (0.8-4.8); LYMPHOCYTES % (AUTO) 24.5 % (20.0-44.0); MEAN CORPUSCULAR HGB CONC 32 g/dl (31.0-36.0); MEAN CORPUSCULAR VOLUME 81 fL (80-96); MONOCYTES # (AUTO) 0.9 K/uL (0.1-1.30); MONOCYTES % (AUTO) 13.6 % (2.0-12.0); NEUTROPHILS # (AUTO) 3.8 K/uL (1.8-8.9); NEUTROPHILS % (AUTO) 58.2 % (43.0-81.0); PLATELET COUNT (AUTO) 154 K/uL (150-450); RED BLOOD CELL COUNT(AUTO) 4.75 MIL/uL (4.5-6.0); WHITE BLOOD COUNT (AUTO) 6.5 K/uL (4.3-11.0)
[2021-08-08 07:19] LABS: ALBUMIN 3.2 g/dL (3.4-5.0); CALCIUM, SERUM 8.3 mg/dL (8.5-10.1); CREATININE 1.2 mg/dL (0.6-1.3); MAGNESIUM 2.8 mg/dL (1.8-2.4); POTASSIUM 3.2 mmol/L (3.5-5.1); TOTAL PROTEIN, SERUM 6.2 g/dL (6.4-8.2)
[2021-08-08 08:28] VITALS: BP 126/92
[2021-08-08] MEDS: JARDIANCE 25 MG PO SCH (08:38)
[2021-08-08] MEDS: GABAPENTIN 100 MG CAPSULE PO SCH ×2 (08:38→17:02)
[2021-08-08] MEDS: FLUTICASONE/VILANTEROL 1 EACH BLST.W.DEV IH SCH (08:38)
[2021-08-08] MEDS: LINAGLIPTIN 5 MG TABLET PO SCH (08:39)
[2021-08-08] MEDS: METOCLOPRAMIDE HCL 10 MG TABLET PO SCH ×2 (08:40→17:01)
[2021-08-08] MEDS: ISOSORBIDE MONONITRATE (30MG) 30 MG TAB.SR.24H PO SCH (08:40)
--- NOTE | 2021-08-08 10:22 | NUR ---
PRINCIPAL ARCHAEOLOGIST OPENING NOTES RECEIVED PATIENT IN BED, AWAKE, A/O X4. ABLE TO MAKE NEEDS KNOWN. ON ROOM AIR, TOLERATING WELL WITH NO SOB NOTED AT THIS TIME. RAC IV ACCESS G # 18 INTACT, PATENT AND FLUSHES WELL. ALL NEEDS AND CARE ATTENDED WELL. SAFETY PRECAUTIONS IN PLACE: BED IN LOWEST LOCKED POSITION, SIDE-RAILS UPx2, TRAY TABLE AND CALL LIGHT WITHIN EASY REACH OF PT. WILL CONTINUE TO MONITOR PATIENT.
[2021-08-08 12:13] VITALS: BP 104/73
[2021-08-08] MEDS: FUROSEMIDE 40 MG/4 ML VIAL IV SCH ×3 (13:26→20:51)
[2021-08-08] MEDS: POTASSIUM CHLORIDE 20 MEQ TAB.PRT.SR PO SCH ×5 (13:30→17:56)
[2021-08-08 16:33] VITALS: BP 114/76
--- NOTE | 2021-08-08 19:25 | NUR ---
AIRLINE STEWARDESS CLOSING NOTES PATIENT IN BED, AWAKE, A/O X4. ABLE TO MAKE NEEDS KNOWN. ON ROOM AIR, TOLERATING WELL WITH NO SOB NOTED DURING SHIFT. RAC IV ACCESS G # 18 INTACT, PATENT AND FLUSHES WELL. NPO AFTER MIDNIGHT. ALL NEEDS AND CARE ATTENDED DURING THE DAY. SAFETY PRECAUTIONS IN PLACE: BED IN LOWEST LOCKED POSITION, SIDE-RAILS UPx2, TRAY TABLE AND CALL LIGHT WITHIN EASY REACH OF PT. WILL ENDORSE TO JET INSPECTOR NURSE FOR TANK.
[2021-08-08 20:00] VITALS: BP 106/70
--- NOTE | 2021-08-08 20:30 | NUR ---
MANAGER MASSAGE DEPARTMENT OPENING NOTES:l RECEIVED PATIENT AWAKE IN BED, BED IN LOW POSITION, CALL LIGHTS WITHIN REACH, NO COMPLAIN OF PAIN AND DISCOMFORT AT THIS TIME, PATIENT WAS A/OX4 ABLE TO EXPRESS NEEDS, ON TELE MONITORING SR -66 WITH BBB AND PVC, PATIENT ON ROOM AIR SATURATING WELL, ON NPO PATIENT KEPT CLEAN AND DRY ALL NEEDS MET WILL CONTINUE TO MONITOR.
[2021-08-08] MEDS: FINASTERIDE (5 MG) 5 MG TABLET PO SCH (22:01)
[2021-08-08] MEDS: FAMOTIDINE (20 MG) 20 MG TABLET PO SCH (22:02)
--- NOTE | 2021-08-08 22:30 | NUR ---
RN NOTES: REMIND RESIDENT ON NPO EXPLAINED POSSIBLE CATHETERIZATION IN PATIENT REFUSED TO SIGN CONSENT UNLESS THERE IS A SPECIFIC SCHEDULE ON CATH TOMORROW. CHARGE NURSE ALSO CONVINCE PATIENT DURING ROUNDS BUT REFUSED. TO CONSENT.
[2021-08-09] VITALS (11 sets, daily range): BP systolic 94–133; BP diastolic 25–90
--- NOTE | 2021-08-09 07:35 | NUR ---
SUPERVISOR FIBER LOCKING OPENING NOTES PATIENT RESTING IN BED, ABLE TO BE WAKEN. A/O X4. EQUAL CHEST EXPANSION ON RA WITH NO S/SX OF RESPIRATORY DISTRESS NOTED. NO COMPLAINT OF PAIN VERBALIZED AT THIS TIME. PATIENT REMAINS NPO AWAITING CORONARY ANGIOGRAM. ON TELE MONITORING READING SR 68 WITH BBB's AND PVC's AT THIS TIME. R AC #18 INTACT AND PATENT. SAFETY MEASURES IN PLACE: BED IN LOWEST POSITION, WHEELS LOCKED, CALL LIGHT WITHIN REACH, SIDE RAILS UP X2. WILL CONTINUE PLAN OF CARE
[2021-08-09 07:38] LABS: CALCIUM, SERUM 8.4 mg/dL (8.5-10.1); CREATININE 1.2 mg/dL (0.6-1.3); POTASSIUM 3.7 mmol/L (3.5-5.1)
--- NOTE | 2021-08-09 07:40 | NUR ---
SERVICING REP CLOSING NOTES: PATIENT SLEEP IN BED COMFORTABLY, BED IN LOW POSITION, CALL LIGHTS WITHIN REACH, NO COMPLAIN OF PAIN AND DISCOMFORT AT THIS TIME, ON ROOM AIR SATURATING WELL, PATIENT IS A/OX4 AMBULATE TO FROM BED TO REST ROOM, ON NPO AWAITING CORONARY ANGIOGRAM IN AM , ON TELE MONITORING SR-66 WITH BBB AND PVC STALBE, PATIENT KEPT CLEAN AND DRY ALL NEEDS MET WILL ENDORSE TO INCOMING SHIFT.
[2021-08-09] MEDS: PANTOPRAZOLE 40 MG TABLET.DR PO SCH (08:12)
[2021-08-09] MEDS: ISOSORBIDE MONONITRATE (30MG) 30 MG TAB.SR.24H PO SCH (08:12)
[2021-08-09] MEDS: GABAPENTIN 100 MG CAPSULE PO SCH ×2 (08:12→18:29)
[2021-08-09] MEDS: METOCLOPRAMIDE HCL 10 MG TABLET PO SCH ×2 (08:13→18:29)
[2021-08-09] MEDS: LINAGLIPTIN 5 MG TABLET PO SCH (08:13)
[2021-08-09] MEDS: LEVOTHYROXINE SODIUM 100 MCG TABLET PO SCH (08:20)
[2021-08-09] MEDS ORDERED: ENOXAPARIN SODIUM 40 MG/0.4 ML DISP.SYRIN SQ SCH (09:00)
[2021-08-09] MEDS: JARDIANCE 25 MG PO SCH (09:49)
[2021-08-09] MEDS: FLUTICASONE/VILANTEROL 1 EACH BLST.W.DEV IH SCH (09:49)
[2021-08-09] MEDS ORDERED: IV SET PRIMARY PUMP SET 1 EA INFUS.SET MC ONE (12:09)
[2021-08-09] MEDS ORDERED: NTG 50 MG/D5W250 ML BOTTL 250 ML IV ONE (12:09)
[2021-08-09] MEDS ORDERED: IV NS 0.9% 1,000 ML ONE (12:09)
[2021-08-09] MEDS ORDERED: IODIXANOL 150 ML IV ONE (12:10)
[2021-08-09] MEDS ORDERED: LIDOCAINE HCL/MPF 1% 30 ML VIAL IJ ONE (12:10)
[2021-08-09] MEDS ORDERED: FENTANYL PF 100MCG/2ML AMPUL ONE (12:10)
[2021-08-09] MEDS ORDERED: MIDAZOLAM HCL 2 MG/2ML VIAL ONE (12:10)
--- NOTE | 2021-08-09 12:30 | NUR ---
ORDER FILLER NOTES PATIENT TRANSFERRED DOWN TO PMP FOR CORONARY ANGIOGRAM PROCEDURE. PATIENT LEFT UNIT VIA BED ACCOMPANIED BY 2 TECHS.
[2021-08-09] MEDS ORDERED: MORPHINE SULFATE INJ 4 MG/ML DISP.SYRIN ONE (13:08)
--- NOTE | 2021-08-09 14:10 | NUR ---
HEALTHCARE PROF NOTES RECEIVED PT FROM GLEASON GEAR GENERATOR. STABLE ON ROOM AIR. TR BAND NOTED ON R RADIAL. NO SIGNS OF BLEEDING. NO PAIN REPORTED AT THIS TIME. KEPT FLAT ON BED. WILL CONTINUE TO MONITOR.
--- NOTE | 2021-08-09 14:10 | NUR ---
CARDIOLOGY CONSULTANTS NOTES RECEIVED REPORT FROM [facility]. PATIENT IS TRANSFERRING TO ICU FOR CLOSER OBSERVATION POST CARDIAC CATHETERIZATION.
[2021-08-09] MEDS ORDERED: ASPIRIN EC 325 MG TABLET.DR PO SCH (14:30)
--- NOTE | 2021-08-09 14:59 | NUR ---
CORK COMPOUNDER NOTES REPORT GIVEN TO ICU NURSE ELIDA FOR TANK.
[2021-08-09] MEDS: ASPIRIN 81 MG TAB.CHEW PO SCH (15:04)
[2021-08-09] MEDS: FUROSEMIDE 40 MG/4 ML VIAL IV SCH ×2 (15:04→18:29)
[2021-08-09] MEDS: ENOXAPARIN SODIUM 100 MG/ML DISP.SYRIN SQ SCH ×3 (15:06→22:49)
--- NOTE | 2021-08-09 15:49 | NUR ---
RN NOTES REPORT GIVEN TO TO FRANCISCA LUA FOR TANK.
--- NOTE | 2021-08-09 17:33 | NUR ---
WET SILK HANGER. TR BAND REMOVED PER MD ORDER. NO COMPLICATION NOTED. WILL CONTINUE TO MONITOR VITALS.
--- NOTE | 2021-08-09 20:39 | NUR ---
COPIER TECHNICIAN. PT STATED THIS MORNING BLURRY VISION . I NOTIFIED MD CAT. ORDERED CT HEAD.
--- NOTE | 2021-08-09 20:43 | NUR ---
BY[employer]ODUCTS PUMP OPERATOR. CT HEAD RESULT NOTIFIED MD CAT.
[2021-08-09] MEDS: FAMOTIDINE (20 MG) 20 MG TABLET PO SCH (21:17)
[2021-08-09] MEDS: FINASTERIDE (5 MG) 5 MG TABLET PO SCH (21:17)
[2021-08-10] VITALS (14 sets, daily range): BP systolic 87–125; BP diastolic 48–96
[2021-08-10 04:21] LABS: BASOPHILS # (AUTO) 0.1 K/uL (0.0-0.2); BASOPHILS % (AUTO) 1.1 % (0.0-2.0); HEMATOCRIT 42 % (39-51); HEMOGLOBIN 13.2 g/dL (13.5-17.5); LYMPHOCYTES # (AUTO) 1.3 K/uL (0.8-4.8); LYMPHOCYTES % (AUTO) 21.9 % (20.0-44.0); MEAN CORPUSCULAR HGB CONC 32 g/dl (31.0-36.0); MEAN CORPUSCULAR VOLUME 81 fL (80-96); MONOCYTES # (AUTO) 0.8 K/uL (0.1-1.30); MONOCYTES % (AUTO) 13.1 % (2.0-12.0); NEUTROPHILS # (AUTO) 3.5 K/uL (1.8-8.9); NEUTROPHILS % (AUTO) 59.9 % (43.0-81.0); PLATELET COUNT (AUTO) 148 K/uL (150-450); RED BLOOD CELL COUNT(AUTO) 5.13 MIL/uL (4.5-6.0); WHITE BLOOD COUNT (AUTO) 5.9 K/uL (4.3-11.0)
--- NOTE | 2021-08-10 04:21 | NUR ---
PT C/O ANXITY ASKING FOR XANAX. NOTIFIED ANA MARIA. THEN NOTED PT HAS BENZOS ALLERGY. ANA MARIA ORDERED SEROQUEL. BEFORE GIVEN SREOQUEL EKG TAKEN. EKG SEND TO ANA MARIA, THEN ONE TIME ORDER SEROQUEL.PT VITALS STABLE. NO DISTRESS NOTED. SAT IS 96%.
[2021-08-10] MEDS ORDERED: QUETIAPINE FUMARATE 25 MG TABLET PO ONE (04:30)
[2021-08-10 05:19] LABS: CALCIUM, SERUM 8.7 mg/dL (8.5-10.1); CREATININE 1.2 mg/dL (0.6-1.3); MAGNESIUM 2.8 mg/dL (1.8-2.4); PHOSPHORUS 4.3 mg/dL (2.5-4.9); POTASSIUM 3.9 mmol/L (3.5-5.1)
--- NOTE | 2021-08-10 05:47 | NUR ---
HEAD MEN'S TENNIS COACH. AM CARE GIVEN,. REMAINING SAME ROOM AIR SAT 97%, NO ACUTE DISTRESS NOTED, SPOOL WORKER SHOWING NSR. IV LT AC 18G. HOB ELEVATED. AFEBRILE. WILL CONTINUE TO MONITOR VITALS.
--- NOTE | 2021-08-10 07:30 | NUR ---
RN MORNING NOTE PT OBSERVED IN BED SLEEPING WITH HOB SEMI FOWLERS. PT IS ON RA SAT 94% TOLERATING WELL WITH NO SIGNS OF DISTRESS OR LABORED BREATHING. PT IS AOX4, SR HR 60S. PT IS ON CARDIAC LOW FAT DIET. IV ACCESS R AC 18G AND L AC 18G. BED IS LOCKED IN LOWEST POSITION X2 BED RAILS UP AND ALL HOSPITAL SAFETY MEASURES ARE IN PLACE. WILL CONTINUE TO MONITOR THIS SHIFT.
[2021-08-10] MEDS: PANTOPRAZOLE 40 MG TABLET.DR PO SCH (07:40)
[2021-08-10] MEDS: LEVOTHYROXINE SODIUM 100 MCG TABLET PO SCH (07:40)
[2021-08-10] MEDS: FUROSEMIDE 40 MG/4 ML VIAL IV SCH (08:29)
[2021-08-10] MEDS: GABAPENTIN 100 MG CAPSULE PO SCH (08:30)
[2021-08-10] MEDS: LINAGLIPTIN 5 MG TABLET PO SCH (08:30)
[2021-08-10] MEDS: ISOSORBIDE MONONITRATE (30MG) 30 MG TAB.SR.24H PO SCH (08:30)
[2021-08-10] MEDS: JARDIANCE 25 MG PO SCH (08:31)
[2021-08-10] MEDS: ASPIRIN 81 MG TAB.CHEW PO SCH (08:31)
[2021-08-10] MEDS: METOCLOPRAMIDE HCL 10 MG TABLET PO SCH (08:31)
[2021-08-10] MEDS: ENOXAPARIN SODIUM 100 MG/ML DISP.SYRIN SQ SCH (08:32)
[2021-08-10] MEDS: FLUTICASONE/VILANTEROL 1 EACH BLST.W.DEV IH SCH (08:33)
[2021-08-10] MEDS ORDERED: GABAPENTIN 300 MG CAPSULE PO SCH (09:00)
--- NOTE | 2021-08-10 09:03 | NUR ---
RN NOTE MORNING NEURONTIN ALREADY GIVEN THIS MORNING. PHARMACY CHANGED ORDER TO 1 PILL 300 MG INSTEAD OF 3 PILLS 100MG EACH.
[2021-08-10] MEDS: FUROSEMIDE 100 MG/10 ML VIAL IV SCH ×2 (09:34→12:31)
[2021-08-10] MEDS: POTASSIUM CHLORIDE 20 MEQ TAB.PRT.SR PO SCH ×3 (09:34→12:28)
--- NOTE | 2021-08-10 15:00 | NUR ---
RN NOTE THIS RN CALLED [facility] AND GAVE REPORT TO STONEY DELUNA.
--- NOTE | 2021-08-10 15:35 | NUR ---
RN NOTE PT TRANSFERRED TO [facility]IA [facility] #216. PT STABLE AT THIS TIME. PT ENDORSED TO AMBULANCE CREW ACCORDINGLY. REPORT GIVEN TO EMT. ALL PAPERWORKS SIGNED AND COMPLETED. ALL BELONGINGS SENT WITH PT AND PT SIGNED BELONGINGS LIST AND AWCKNOWLEDGED HAVING ALL ITEMS ON LIST. L UA IV 18G ACCESS STILL INTACT. PT GIVEN PRN ZOFRAN FOR NAUSEA BEFORE LEAVING WITH AMBULANCE.
[2021-08-10] MEDS: ONDANSETRON HCL/PF 4 MG/2 ML VIAL IVP PRN (15:54)
== END 2021-08-10 16:53 | disposition short-term general hospital (02) | DRG 280 ==
LOC: ER 13:05 → TELE 17:05 → ICU 08-09 14:54
PROVIDERS: ADMIT Internal Medicine; ATTEND Internal Medicine
PROC: 4A023N7 Measurement of Cardiac Sampling and Pressure, Left Heart, Percutaneous Approach (ICD-10-PCS; principal; 2021-08-09)
PROC: B211YZZ Fluoroscopy of Multiple Coronary Arteries using Other Contrast (ICD-10-PCS; 2021-08-09)
DX: I13.0 Hypertensive heart and chronic kidney disease with heart failure and stage 1 through stage 4 chronic kidney disease, or unspecified chronic kidney disease (principal); I21.4 Non-ST elevation (NSTEMI) myocardial infarction; N17.0 Acute kidney failure with tubular necrosis; I50.23 Acute on chronic systolic (congestive) heart failure; R18.8 Other ascites; J98.11 Atelectasis; I25.10 Atherosclerotic heart disease of native coronary artery without angina pectoris; E03.9 Hypothyroidism, unspecified; K21.9 Gastro-esophageal reflux disease without esophagitis; E78.5 Hyperlipidemia, unspecified; K57.30 Diverticulosis of large intestine without perforation or abscess without bleeding; N18.9 Chronic kidney disease, unspecified; E11.22 Type 2 diabetes mellitus with diabetic chronic kidney disease; I25.5 Ischemic cardiomyopathy; Z79.84 Long term (current) use of oral hypoglycemic drugs; Z87.891 Personal history of nicotine dependence; N40.0 Benign prostatic hyperplasia without lower urinary tract symptoms; E11.36 Type 2 diabetes mellitus with diabetic cataract; Z88.8 Allergy status to other drugs, medicaments and biological substances; Z91.011 Allergy to milk products; Z79.899 Other long term (current) drug therapy; E23.7 Disorder of pituitary gland, unspecified; K80.20 Calculus of gallbladder without cholecystitis without obstruction; N13.9 Obstructive and reflux uropathy, unspecified
CPT/HCPCS: 36415; 70450-TC; 71045-TC; 71250-TC; 76700-TC; 80048-TC; 80053-TC; 80076-TC; 83735-TC; 83880; 84100-TC; 84484-TC; 85025-TC; 85730-TC; 87081-TC; 93307-TC; 93970-TC; C1887; C9803; G0378; G0500; J1644; J1650; J1940; J2250; J2270; J2405; J3010; J3490; J7030; J8597; Q9967

== ENCOUNTER 2021-09-18 20:47 | Inpatient (IN) | payer MEDICARE, OTHER ==
[~2021-09-18] VITALS: Ht 185.4 cm; Wt 90.7 kg
[~2021-09-18 20:47] MED LIST: AMOX500C2 PO; EMPA25TA PO; FAMO40TA7 PO; FINA5TAB11 PO; FLUT1BLS PO; FURO80TA85 PO; GABA-532 PO; ISOS60TA72 PO; LEVO100T9 PO; METO5TAB2 PO; OMEP40CA21 PO; SITA100T PO; TESTOSTERONE PO
--- NOTE | 2021-09-18 20:54 | NUR ---
BIB FAMILY FOR C/O MID STERNAL CP RADIATING TO L ARM X 2 HOURS. +N/V ON ONGOING CONT IV DOBUTAMIN. DUPLICATING MACHINE MECHANIC LAST #18G PICCLINE PATENT AND INTACT. PT A/OX4. TOLERATING R/A AT 98%; C/O SOB. CONNECTED PT TO POX AND MONITOR
--- NOTE | 2021-09-18 21:28 | NUR ---
BLOOD COLLECTED AND SENT TO LAB VIA [facility] PICLINE. RESUMED DOBUTAMINE 8.9ML/HR CONTINUOUSLY.
--- NOTE | 2021-09-18 21:31 | NUR ---
AUTOMOTIVE AIRCONDITIONING MECHANIC AT PT'S BEDSIDE
--- NOTE | 2021-09-18 21:31 | NUR ---
XRAY AT BEDSIDE
[2021-09-18 21:35] LABS: EOSINOPHILS % (AUTO) 0.1 % (0.0-6.0); HEMATOCRIT 21 % (39-51); LYMPHOCYTES # (AUTO) 0.5 K/uL (0.8-4.8); MONOCYTES # (AUTO) 0.2 K/uL (0.1-1.30); RED BLOOD CELL COUNT(AUTO) 2.48 MIL/uL (4.5-6.0); WHITE BLOOD COUNT (AUTO) 5.6 K/uL (4.3-11.0)
[2021-09-18 21:41] LABS: CALCIUM, SERUM 8.7 mg/dL (8.5-10.1); CARBON DIOXIDE 20 mmol/L (21-32); CHLORIDE 92 mmol/L (98-107); CREATININE 1.6 mg/dL (0.6-1.3); GLUCOSE 217 mg/dL (74-106); POTASSIUM 4.5 mmol/L (3.5-5.1); SODIUM SERUM 126 mmol/L (136-145); UREA NITROGEN, BLOOD 26 mg/dL (7-18)
[2021-09-18 21:43] LABS: BASOPHILS % (AUTO) 0.7 % (0.0-2.0); LYMPHOCYTES % (AUTO) 9.1 % (20.0-44.0); MEAN CORPUSCULAR HGB CONC 31 g/dl (31.0-36.0); MEAN CORPUSCULAR VOLUME 86 fL (80-96); MONOCYTES % (AUTO) 3.7 % (2.0-12.0); NEUTROPHILS # (AUTO) 4.8 K/uL (1.8-8.9); NEUTROPHILS % (AUTO) 86.4 % (43.0-81.0); PLATELET COUNT (AUTO) 261 K/uL (150-450)
--- NOTE | 2021-09-18 21:54 | NUR ---
TROPONIN 134; DR. LAW TO NOTIFIED
[2021-09-18 22:13] LABS: HEMOGLOBIN 6.6 g/dL (13.5-17.5)
--- NOTE | 2021-09-18 22:13 | NUR ---
CRITICAL LABS HEMOGLOIN 6.6 HEMATOCRIT 21
[2021-09-18 22:42] LABS: LYMPHOCYTES % (MANUAL) 6 % (16-48); MONOCYTES % (MANUAL) 1 % (0-11.0); NEUTROPHILS % (MANUAL) 93 (42-76)
--- NOTE | 2021-09-18 22:47 | NUR ---
COVID ANTIGEN SWAB AND MRSA SWAB COLLECTED VIA [facility]ARE AND SENT TO LAB
[2021-09-18] MEDS ORDERED: FUROSEMIDE 40 MG/4 ML VIAL ONE (22:51)
[2021-09-18] MEDS ORDERED: METOCLOPRAMIDE HCL 10 MG/2 ML VIAL ONE (22:52)
[2021-09-18] MEDS ORDERED: METOCLOPRAMIDE HCL 10 MG/2 ML VIAL IV ONE (23:00)
[2021-09-18] MEDS ORDERED: FUROSEMIDE 40 MG/4 ML VIAL IV ONE (23:00)
--- NOTE | 2021-09-18 23:16 | NUR ---
IV LINE ESTABLISHED, RFA 18G
[2021-09-18] MEDS ORDERED: ONDANSETRON HCL/PF 4 MG/2 ML VIAL ONE (23:52)
[2021-09-19] MEDS ORDERED: ONDANSETRON HCL/PF 4 MG/2 ML VIAL IV ONE
--- NOTE | 2021-09-19 00:35 | NUR ---
PT SEEN BY DR. BARBER [facility]
--- NOTE | 2021-09-19 01:27 | NUR ---
BLOOD TRANSFUSION INITIATED AT 0105, PT TOLERATING WELL. WILL CONTINUE TO MONITOR
--- NOTE | 2021-09-19 01:35 | NUR ---
REPORT GIVEN TO GEO LUA FOR TANK
[2021-09-19] MEDS ORDERED: Z GUARD REMEDY 4 OZ OINT TP PRN (02:00)
[2021-09-19] MEDS ORDERED: ACETAMINOPHEN 325 MG TABLET PO PRN (02:00)
[2021-09-19] MEDS ORDERED: BUMETANIDE INJ 4 MG in IV NS 0.9% 24 ML IV ONE (02:00)
--- NOTE | 2021-09-19 02:08 | NUR ---
patient being transferred to [facility] via acls protocol.
--- NOTE | 2021-09-19 02:15 | NUR ---
RN NOTE RECEIVED PATIENT FROM ER, TRANSFERRED TO ROOM 119-1. TRANSFERRED TO BED SAFELY. PATIENT IS ALERT AND ORIENTED X4, ABLE TO MAKE NEEDS KNOWN. ADMITTING DX: HYPOTENSION/ANEMIA. ON ROOM AIR, NO S/S OF RESPIRATORY DISTRESS. DENIES ANY PAIN OR CHEST PAIN. TELE MONITOR ON, SR WITH BBB AND PVC'S. IV ACCESS LAST PICC LINE INFUSING WITH DOBUTAMINE 6MCG/KG/MIN AND RIGHT FOREARM #18 INFUSING BLOOD TRANSFUSION. NO S/S OF ANY ADVERSE EFFECT. SKIN ASSESSMENT DONE, NOTED WITH DRY SCABS ON RIGHT UPPER CHEST WALL, LEFT LEG, RIGHT FOOT, AND SACRUM. V/S TEMP 96.7, HR 58, RESP 20, O2 SAT 100%, BP 98/58. ORIENTED PATIENT TO ROOM, STAFF, AND USE OF CALL LIGHT. BED LOCKED AND IN LOWEST POSITION. CALL LIGHT WITHIN REACH. ALL NEEDS ANTICIPATED.
[2021-09-19 04:00] VITALS: BP 107/62
--- NOTE | 2021-09-19 04:06 | NUR ---
RN NOTE BLOOD TRANSFUSION 1 UNITE PRBC COMPLETED AT THIS TIME. NO S/S OF ADVERSE EFFECTS. V/S TEMP 97.3, HR 63, RESP 20, O2 SAT 100%, BP 107/62.
[2021-09-19] MEDS ORDERED: BUMETANIDE INJ 0.25 MG/ML VIAL ONE (04:10)
[2021-09-19] MEDS ORDERED: DOBUTamine 12.5 MG/ML VIAL IV ONE (04:39)
[2021-09-19] MEDS: DoBUTamine 500 MG/250 ML PIGGYBACK IV ONE (04:52)
[2021-09-19] MEDS: ONDANSETRON HCL/PF 4 MG/2 ML VIAL IVP PRN ×2 (04:54→08:37)
[2021-09-19 08:00] VITALS: BP 98/54
--- NOTE | 2021-09-19 08:03 | NUR ---
RN NOTE PATIENT IN BED RESTING. ON ROOM AIR, NO S/S OF RESPIRATORY DISTRESS. NO SIGNIFICANT CHANGES DURING THIS SHIFT. ENDORSED TO DAY SHIFT FOR TANK.
[2021-09-19] MEDS: METOCLOPRAMIDE HCL 10 MG TABLET PO SCH ×2 (08:38→17:11)
[2021-09-19] MEDS: GABAPENTIN 300 MG CAPSULE PO SCH ×2 (08:38→17:11)
[2021-09-19] MEDS: LINAGLIPTIN 5 MG TABLET PO SCH (08:38)
[2021-09-19] MEDS: ISOSORBIDE MONONITRATE (30MG) 30 MG TAB.SR.24H PO SCH (08:39)
[2021-09-19] MEDS: PANTOPRAZOLE 40 MG TABLET.DR PO SCH (08:40)
[2021-09-19] MEDS: LEVOTHYROXINE SODIUM 100 MCG TABLET PO SCH (08:43)
[2021-09-19] MEDS: ENOXAPARIN SODIUM 40 MG/0.4 ML DISP.SYRIN SQ SCH (08:43)
[2021-09-19] MEDS ORDERED: EMPAGLIFLOZIN 25 MG TABLET PO SCH (09:00)
[2021-09-19] MEDS ORDERED: ONDANSETRON HCL/PF 4 MG/2 ML VIAL IV PRN (09:00)
[2021-09-19] MEDS ORDERED: DoBUTamine 500 MG/250 ML PIGGYBACK IV ONE (09:00)
[2021-09-19] MEDS ORDERED: FUROSEMIDE 40 MG TABLET PO SCH (09:00)
[2021-09-19 09:26] LABS: IRON, SERUM 19 ug/dl (50-175); TOTAL IRON BINDING CAPACITY 328 ug/dl (250-450)
[2021-09-19 09:40] LABS: CHOLESTEROL 149 mg/dL (<200); FERRITIN 306 ng/mL (8-388); HDL CHOLESTEROL 53 mg/dL (40-60); LDL 80 mg/dL (0-99); TRIGLYCERIDES 100 mg/dL (30-150)
[2021-09-19] MEDS: SENNOSIDES 8.6 MG TABLET PO SCH ×2 (10:21→22:00)
[2021-09-19] MEDS: FLUTICASONE/VILANTEROL 1 EACH BLST.W.DEV IH SCH (12:27)
[2021-09-19] MEDS: DOBUTamine 500 MG in IV D5W 210 ML IV PRN ×2 (14:58→19:30)
[2021-09-19 15:03] LABS: BASOPHILS # (AUTO) 0.1 K/uL (0.0-0.2); BASOPHILS % (AUTO) 0.6 % (0.0-2.0); EOSINOPHILS % (AUTO) 0.1 % (0.0-6.0); HEMATOCRIT 23 % (39-51); HEMOGLOBIN 7.7 g/dL (13.5-17.5); LYMPHOCYTES # (AUTO) 1.6 K/uL (0.8-4.8); LYMPHOCYTES % (AUTO) 19.4 % (20.0-44.0); MEAN CORPUSCULAR HGB CONC 33 g/dl (31.0-36.0); MEAN CORPUSCULAR VOLUME 84 fL (80-96); MONOCYTES # (AUTO) 0.7 K/uL (0.1-1.30); MONOCYTES % (AUTO) 8.8 % (2.0-12.0); NEUTROPHILS # (AUTO) 5.9 K/uL (1.8-8.9); NEUTROPHILS % (AUTO) 71.1 % (43.0-81.0); PLATELET COUNT (AUTO) 265 K/uL (150-450); RED BLOOD CELL COUNT(AUTO) 2.76 MIL/uL (4.5-6.0); WHITE BLOOD COUNT (AUTO) 8.3 K/uL (4.3-11.0)
[2021-09-19 16:00] VITALS: BP 90/49
--- NOTE | 2021-09-19 16:00 | NUR ---
RN NOTE PER PT WANTS IV LASIX INSTEAD OF PO. DR. CAT SAID OKAY SAME RATE
[2021-09-19] MEDS: FUROSEMIDE 40 MG/4 ML VIAL IV SCH (17:11)
--- NOTE | 2021-09-19 17:30 | NUR ---
RN NOTE PT LEFT TO HYDROSCAN WITH VICE PRESIDENT FIXED INCOME. ON DOBUTEMINE DRIP 8MCG/KG/MIN. PT STABLE LEFT ON WHEELCHAIR
--- NOTE | 2021-09-19 19:40 | NUR ---
NM:TRINIDAD SCAN WAS COMPLETED:TECH:RB.
--- NOTE | 2021-09-19 19:47 | NUR ---
RONN/SALES ENABLEMENT CONSULTANT PT RETURN FROM SCAN. PT IN BED COMFORTABLE. CALL LIGHT WITHIN REACH
[2021-09-19 20:00] VITALS: BP 99/45
[2021-09-19] MEDS ORDERED: FAMOTIDINE 40 MG TABLET PO SCH (22:00)
--- NOTE | 2021-09-19 22:27 | NUR ---
ICU/BOTTOM STOP ATTACHER PT UP TO THE BATHROOM WITH ASST. HAD A BM. HELD SEN[place]OT. WILL CONTINUE TO MONITOR THIS PT.
[2021-09-19] MEDS: FINASTERIDE (5 MG) 5 MG TABLET PO SCH (22:28)
[2021-09-19] MEDS: MIDODRINE HCL (5MG) 5 MG TABLET PO SCH (22:32)
[2021-09-19] MEDS ORDERED: FAMOTIDINE (20 MG) 20 MG TABLET ONE (22:38)
--- NOTE | 2021-09-19 22:49 | NUR ---
RONN/MASS SPEC PEPCID 40MHG PO HS IS NOT STOCKED IN THE PIXIS HOWEVER PEPCID 20MG PO IS. CHARGE NURSE OVER RIDE THIS MEDICATION, PEPCID 20MG X2 FOR A TOTAL OF 40MG.
--- NOTE | 2021-09-19 22:52 | NUR ---
RONN/HIRED HELP HIDA SCAN RESULTS SHOWS No scintigraphic evidence to suggest the presence of a common bile or cystic ducts obstruction.
[2021-09-20] VITALS: BP 90/48
[2021-09-20 04:00] VITALS: BP 90/39
[2021-09-20] MEDS: DOBUTamine 500 MG in IV D5W 210 ML IV PRN ×2 (05:19→16:34)
[2021-09-20] MEDS: LEVOTHYROXINE SODIUM 100 MCG TABLET PO SCH (05:27)
[2021-09-20] MEDS: PANTOPRAZOLE 40 MG TABLET.DR PO SCH (05:27)
[2021-09-20 06:19] LABS: BASOPHILS # (AUTO) 0.1 K/uL (0.0-0.2); BASOPHILS % (AUTO) 1.3 % (0.0-2.0); EOSINOPHILS % (AUTO) 0.5 % (0.0-6.0); HEMATOCRIT 23 % (39-51); HEMOGLOBIN 7.4 g/dL (13.5-17.5); LYMPHOCYTES # (AUTO) 1.9 K/uL (0.8-4.8); LYMPHOCYTES % (AUTO) 30.5 % (20.0-44.0); MEAN CORPUSCULAR HGB CONC 33 g/dl (31.0-36.0); MEAN CORPUSCULAR VOLUME 86 fL (80-96); MONOCYTES # (AUTO) 0.5 K/uL (0.1-1.30); MONOCYTES % (AUTO) 8.9 % (2.0-12.0); NEUTROPHILS # (AUTO) 3.6 K/uL (1.8-8.9); NEUTROPHILS % (AUTO) 58.8 % (43.0-81.0); PLATELET COUNT (AUTO) 275 K/uL (150-450); RED BLOOD CELL COUNT(AUTO) 2.61 MIL/uL (4.5-6.0); WHITE BLOOD COUNT (AUTO) 6.1 K/uL (4.3-11.0)
[2021-09-20 06:28] LABS: ALBUMIN 2.7 g/dL (3.4-5.0); CALCIUM, SERUM 8.1 mg/dL (8.5-10.1); MAGNESIUM 2.9 mg/dL (1.8-2.4); PHOSPHORUS 5.8 mg/dL (2.5-4.9); POTASSIUM 4.3 mmol/L (3.5-5.1); TOTAL PROTEIN, SERUM 6.2 g/dL (6.4-8.2)
--- NOTE | 2021-09-20 07:30 | NUR ---
RN NOTES PT FOUND SEMI FOWLERS DISPLAYING NO S/S OF DISTRESS, PT ENDORSES NO PAIN AT THIS TIME AND IS BREATHING EVEN AND UNLABORED ON RA. PRIVATE FOOD PROCESSING SCIENTIST IS AT BEDSIDE TENDING TO PT ALONG WITH STAFF. L UA ML IS PATIENT AND INTACT. VSS, RN WILL MONITOR AND TREAT THROUGHOUT SHIFT. SAFETY MEASURES IN PLACE, BED LOCKED AND IN LOWEST POSITION, SIDE RAILS UPX2, CALL LIGHT WITHIN REACH, FOOD PROCESSING SCIENTIST AT BED SIDE, PT INSTRUCTED TO CALL FOR ASSISTANCE.
[2021-09-20 08:00] VITALS: BP 108/65
--- NOTE | 2021-09-20 08:00 | NUR ---
MD COMMUNICATION RN SPOKE TO DR STEPHANIA MD GAVE ORDERS: CLEAR LIQUID DIET AND ADVANCE TOLERATED.
[2021-09-20] MEDS: FLUTICASONE/VILANTEROL 1 EACH BLST.W.DEV IH SCH (09:14)
[2021-09-20] MEDS: METOCLOPRAMIDE HCL 10 MG TABLET PO SCH ×2 (09:14→16:30)
[2021-09-20] MEDS: FUROSEMIDE 40 MG/4 ML VIAL IV SCH ×2 (09:14→16:30)
[2021-09-20] MEDS: GABAPENTIN 300 MG CAPSULE PO SCH ×2 (09:15→16:30)
[2021-09-20] MEDS: ISOSORBIDE MONONITRATE (30MG) 30 MG TAB.SR.24H PO SCH (09:15)
[2021-09-20] MEDS: LINAGLIPTIN 5 MG TABLET PO SCH (09:15)
[2021-09-20] MEDS: MIDODRINE HCL (5MG) 5 MG TABLET PO SCH ×3 (09:15→16:30)
[2021-09-20] MEDS: ENOXAPARIN SODIUM 40 MG/0.4 ML DISP.SYRIN SQ SCH (09:18)
[2021-09-20] MEDS ORDERED: EMPAGLIFLOZIN 25 MG TABLET PO SCH (11:00)
[2021-09-20 12:00] VITALS: BP 105/63
[2021-09-20] MEDS: JARDIANCE 25 MG PO SCH (13:18)
[2021-09-20] MEDS: SOD FERRIC GLUC 125 MG in IV NS 0.9% 100 ML IV SCH (13:49)
[2021-09-20 16:00] VITALS: BP 104/61
--- NOTE | 2021-09-20 19:09 | NUR ---
RN NOTES PT FOUND SEMI FOWLERS DISPLAYING NO S/S OF DISTRESS, PT ENDORSES NO PAIN AT THIS TIME AND IS BREATHING EVEN AND UNLABORED ON RA. PRIVATE MAIL HANDLER SORTER IS AT BEDSIDE TENDING TO PT ALONG WITH STAFF. L UA ML IS PATIENT AND INTACT. SBAR AND REPORT GIVEN TO CRYSTALIZER OPERATOR, ALL QUESTIONS ANSWERED. SAFETY MEASURES IN PLACE, BED LOCKED AND IN LOWEST POSITION, SIDE RAILS UPX2, CALL LIGHT WITHIN REACH, MAIL HANDLER SORTER AT BED SIDE, PT INSTRUCTED TO CALL FOR ASSISTANCE. PT ENDORSED IN STABLE CONDITION FOR TANK.
[2021-09-20 20:00] VITALS: BP 100/60
[2021-09-20] MEDS: FINASTERIDE (5 MG) 5 MG TABLET PO SCH (22:10)
[2021-09-20] MEDS: FAMOTIDINE (20 MG) 20 MG TABLET PO SCH (22:10)
[2021-09-20] MEDS: SENNOSIDES 8.6 MG TABLET PO SCH (22:10)
[2021-09-21] VITALS: BP 95/55
[2021-09-21] MEDS: DOBUTamine 500 MG in IV D5W 210 ML IV PRN ×3 (01:42→23:29)
[2021-09-21 04:00] VITALS: BP 94/52
[2021-09-21] MEDS: LEVOTHYROXINE SODIUM 100 MCG TABLET PO SCH (06:02)
[2021-09-21] MEDS: PANTOPRAZOLE 40 MG TABLET.DR PO SCH (06:02)
[2021-09-21 07:00] LABS: ALBUMIN 2.7 g/dL (3.4-5.0); BILIRUBIN,DIRECT 0.3 mg/dL (0.0-0.2); BILIRUBIN,TOTAL 0.6 mg/dL (0.2-1.0); CALCIUM, SERUM 7.8 mg/dL (8.5-10.1); CREATININE 1.7 mg/dL (0.6-1.3); MAGNESIUM 2.5 mg/dL (1.8-2.4); PHOSPHORUS 4.9 mg/dL (2.5-4.9); POTASSIUM 3.4 mmol/L (3.5-5.1)
--- NOTE | 2021-09-21 07:30 | NUR ---
RN OPENING NOTE PT OBSERVED IN BED WITH HOB SEMI FOWLERS ON RA NO DISTRESS OR LABORED BREATHING. PT IS A/OX4 WITH BATHROOM PRIVILEGES. PT HAS CAREGIVER ASSISTING AT BEDSIDE AT THIS TIME. IV ACCESS R FA 18 G AND L UA MIDLINE INFUSING WITH DOBUTAMINE 8MCG. BED IS LOCKED IN LOWEST POSITION X2 BED RAILS UP, CALL LIGHT IS WITHIN REACH AND ALL HOSPITAL SAFETY PROTOCOLS ARE IN PLACE. WILL CONTINUE TO MONITOR THIS SHIFT.
[2021-09-21 08:00] VITALS: BP 90/47
[2021-09-21] MEDS: JARDIANCE 25 MG PO SCH (08:39)
[2021-09-21] MEDS: GABAPENTIN 300 MG CAPSULE PO SCH ×2 (08:40→16:40)
[2021-09-21] MEDS: MIDODRINE HCL (5MG) 5 MG TABLET PO SCH ×3 (08:40→16:40)
[2021-09-21] MEDS: LINAGLIPTIN 5 MG TABLET PO SCH (08:41)
[2021-09-21] MEDS: METOCLOPRAMIDE HCL 10 MG TABLET PO SCH ×2 (08:42→16:40)
[2021-09-21] MEDS: FLUTICASONE/VILANTEROL 1 EACH BLST.W.DEV IH SCH (08:43)
[2021-09-21 08:47] LABS: BASOPHILS # (AUTO) 0.1 K/uL (0.0-0.2); BASOPHILS % (AUTO) 1.5 % (0.0-2.0); EOSINOPHILS % (AUTO) 2.4 % (0.0-6.0); HEMATOCRIT 22 % (39-51); HEMOGLOBIN 7.1 g/dL (13.5-17.5); LYMPHOCYTES # (AUTO) 1.1 K/uL (0.8-4.8); LYMPHOCYTES % (AUTO) 21.2 % (20.0-44.0); MEAN CORPUSCULAR HGB CONC 33 g/dl (31.0-36.0); MEAN CORPUSCULAR VOLUME 85 fL (80-96); MONOCYTES # (AUTO) 0.5 K/uL (0.1-1.30); MONOCYTES % (AUTO) 9.5 % (2.0-12.0); NEUTROPHILS # (AUTO) 3.5 K/uL (1.8-8.9); NEUTROPHILS % (AUTO) 65.4 % (43.0-81.0); PLATELET COUNT (AUTO) 280 K/uL (150-450); RED BLOOD CELL COUNT(AUTO) 2.57 MIL/uL (4.5-6.0); WHITE BLOOD COUNT (AUTO) 5.4 K/uL (4.3-11.0)
[2021-09-21] MEDS: ISOSORBIDE MONONITRATE (30MG) 30 MG TAB.SR.24H PO SCH (08:48)
[2021-09-21] MEDS: POTASSIUM CHLORIDE 20 MEQ TAB.PRT.SR PO SCH ×2 (08:49→09:45)
[2021-09-21] MEDS: ENOXAPARIN SODIUM 40 MG/0.4 ML DISP.SYRIN SQ SCH (09:00)
[2021-09-21 12:00] VITALS: BP 90/47
[2021-09-21] MEDS: SOD FERRIC GLUC 125 MG in IV NS 0.9% 100 ML IV SCH (13:35)
[2021-09-21 16:00] VITALS: BP 114/63
[2021-09-21] MEDS: FUROSEMIDE 40 MG TABLET PO SCH (16:40)
--- NOTE | 2021-09-21 19:20 | NUR ---
RN NOTE RECEIVED PATIENT SITTING ON BED ALERT ORIENTED X4 ON ROOM AIR O2:97% IV SITE IS ON LEFT UPPER ARM AND RIGHT FOREARM INTACT PATENT,ON DOBUTAMINE 8MCG/KG/MIN,AMBULATORY,CONTIENT TO BOWEL/BLADDER,SUPERINTENDENT HORTICULTURE AND BEDSIDE,SAFETY MEASURE IMPLEMENT,CALL LIGHT WITHIN REACH CONTINUE TO MONITOR.
--- NOTE | 2021-09-21 19:44 | NUR ---
RN CLOSING NOTE PT IS IN BED WITH HOB SEMI FOWLERS ON RA NO DISTRESS OR LABORED BREATHING. PT'S IS AT BEDSIDE AT THIS TIME. PT IS A/OX4 WITH BATHROOM PRIVILEGES. PT HAS CAREGIVER ASSISTING AT BEDSIDE AT THIS TIME. IV ACCESS R FA 18 G AND L UA MIDLINE INFUSING WITH DOBUTAMINE 8MCG. BED IS LOCKED IN LOWEST POSITION X2 BED RAILS UP, CALL LIGHT IS WITHIN REACH AND ALL HOSPITAL SAFETY PROTOCOLS ARE IN PLACE. WILL ENDORSE TO RUG CUTTER HELPER NURSE FOR TANK.
[2021-09-21 20:00] VITALS: BP 103/83
--- NOTE | 2021-09-21 20:53 | NUR ---
RN NOTE RECEIVED A CALL FROM DR JEFF HORTON,PATIENT WILL HAVE EGD TOMORROW 09/22/21, AT 0800 AM PATIENT NPO AFTER MIDNIGHT.
--- NOTE | 2021-09-21 20:59 | NUR ---
RN NOTE PATIENT SIGNED CONSENTS FOR EGD PROCEDURE,ANESTHESIA,AND BLOOD TRANSFUSION.PLACED CONSENTS IN THE CHART,CALLED PATIENT NOTIFIED.
[2021-09-21] MEDS: SENNOSIDES 8.6 MG TABLET PO SCH (21:20)
[2021-09-21] MEDS: FAMOTIDINE (20 MG) 20 MG TABLET PO SCH (21:20)
[2021-09-21] MEDS: FINASTERIDE (5 MG) 5 MG TABLET PO SCH (21:20)
[2021-09-22] VITALS (8 sets, daily range): BP systolic 97–104; BP diastolic 53–65
[2021-09-22] MEDS ORDERED: ANESTHESIA TRAY IN PYXIS 1 EA TRAY MC ONE (05:31)
[2021-09-22 06:42] LABS: BASOPHILS # (AUTO) 0.1 K/uL (0.0-0.2); BASOPHILS % (AUTO) 1.2 % (0.0-2.0); EOSINOPHILS % (AUTO) 2.8 % (0.0-6.0); HEMATOCRIT 22 % (39-51); HEMOGLOBIN 7.1 g/dL (13.5-17.5); LYMPHOCYTES # (AUTO) 1.6 K/uL (0.8-4.8); LYMPHOCYTES % (AUTO) 25.9 % (20.0-44.0); MEAN CORPUSCULAR HGB CONC 32 g/dl (31.0-36.0); MEAN CORPUSCULAR VOLUME 86 fL (80-96); MONOCYTES # (AUTO) 0.6 K/uL (0.1-1.30); NEUTROPHILS # (AUTO) 3.7 K/uL (1.8-8.9); NEUTROPHILS % (AUTO) 60.1 % (43.0-81.0); PLATELET COUNT (AUTO) 280 K/uL (150-450); RED BLOOD CELL COUNT(AUTO) 2.55 MIL/uL (4.5-6.0); WHITE BLOOD COUNT (AUTO) 6.2 K/uL (4.3-11.0)
[2021-09-22] MEDS: LEVOTHYROXINE SODIUM 100 MCG TABLET PO SCH (07:00)
--- NOTE | 2021-09-22 07:17 | NUR ---
RN NOTE PATIENT REMAINS ALERT ORIENTEDX4 ON ROOM AIR O2:97% IV SITE IS ON LEFT UPPER ARM INTACT PATENT READY TO GO SURGERY,EGD ,CONSENT SIGNED,CHECK LIST DONE ALL NEEDS MET ENDORSE NEXT COMING SHIFT FOR CONTINUATION OF CARE
--- NOTE | 2021-09-22 07:23 | NUR ---
RN OPENING NOTE PATIENT RECEIVED IN BED, RESTING. PATIENT ON ROOM AIR WITH NO SIGNS OF LABORED BREATHING AT THIS TIME. PATIENT NPO SINCE MIDNIGHT FOR EGD SCHEDULED THIS AM, SURGERY AT BEDSIDE READY TO TAKE PATIENT. ALL CONSENTS SIGNED BY SOLAR PHOTOVOLTAIC SYSTEMS ENGINEER AND VERIFIED. PATIENT A&OX4. RIGHT FA IV AND LEFT UA PICC LINE IN PLACE, PATENT. NO SIGNS OF ACUTE DISTRESS NOTED AT THIS TIME. BED LOCKED AND IN LOWEST POSITION, CALL LIGHT WITHIN REACH, 2 SIDE RAILS UP. WILL CONTINUE TO MONITOR.
[2021-09-22 07:30] LABS: ALBUMIN 2.7 g/dL (3.4-5.0); BILIRUBIN,TOTAL 0.6 mg/dL (0.2-1.0); CREATININE 1.1 mg/dL (0.6-1.3); MAGNESIUM 2.6 mg/dL (1.8-2.4); PHOSPHORUS 3.2 mg/dL (2.5-4.9); POTASSIUM 3.7 mmol/L (3.5-5.1); TOTAL PROTEIN, SERUM 6.1 g/dL (6.4-8.2)
[2021-09-22] MEDS: PANTOPRAZOLE 40 MG TABLET.DR PO SCH (07:30)
[2021-09-22] MEDS: JARDIANCE 25 MG PO SCH (08:04)
[2021-09-22] MEDS: ISOSORBIDE MONONITRATE (30MG) 30 MG TAB.SR.24H PO SCH (08:04)
[2021-09-22] MEDS: FUROSEMIDE 40 MG TABLET PO SCH ×2 (08:05→16:45)
[2021-09-22] MEDS: LINAGLIPTIN 5 MG TABLET PO SCH (08:05)
[2021-09-22] MEDS: MIDODRINE HCL (5MG) 5 MG TABLET PO SCH ×3 (08:05→16:45)
[2021-09-22] MEDS: GABAPENTIN 300 MG CAPSULE PO SCH ×2 (08:05→16:45)
[2021-09-22] MEDS: METOCLOPRAMIDE HCL 10 MG TABLET PO SCH ×2 (08:05→16:45)
[2021-09-22] MEDS: TICAGRELOR 90 MG TABLET PO SCH ×2 (08:28→16:46)
[2021-09-22] MEDS: FLUTICASONE/VILANTEROL 1 EACH BLST.W.DEV IH SCH (08:28)
[2021-09-22 11:42] LABS: THYROID STIMULATING HORMONE 1.371 uIU/mL (0.358-3.74)
[2021-09-22] MEDS ORDERED: IOHEXOL-300 100 ML VIAL IV ONE (12:25)
[2021-09-22] MEDS ORDERED: IV NS 0.9% 250 ML IV ONE (12:25)
[2021-09-22] MEDS ORDERED: CT SWABBABLE VALVE TRANS SET 1 EA INFUS.SET MC ONE (12:25)
--- NOTE | 2021-09-22 14:30 | NUR ---
RN NOTE BLOOD TRANSFUSION INITIATED ORDERED. FERRLECIT HELD PER PHARMACY ORDER UNTIL BLOOD TRANSFUSION ENDS. WILL CONTINUE TO MONITOR.
--- NOTE | 2021-09-22 15:00 | NUR ---
RN NOTE BLOOD TRANSFUSION INITIATED, VITAL SIGNS STABLE. WILL CONTINUE TO MONITOR.
[2021-09-22] MEDS: DOBUTamine 500 MG in IV D5W 210 ML IV PRN ×2 (15:18→21:42)
--- NOTE | 2021-09-22 15:34 | NUR ---
RN NOTE NEW BAG OF DOPUTAMINE HANGED BY SURGERY THIS AM, NOT SCANNED. PER PHARMACY, BAG TO BE SCANNED NOW AND IV SPREADSHEET TO BE ADJUSTED TO REFLECT MEDICATION RECEIVED BY PT THROUGHOUT THE DAY. WILL CONTINUE TO MONITOR.
[2021-09-22] MEDS: RIVAROXABAN 10 MG TABLET PO SCH (16:45)
[2021-09-22] MEDS: SOD FERRIC GLUC 125 MG in IV NS 0.9% 100 ML IV SCH (16:55)
--- NOTE | 2021-09-22 17:00 | NUR ---
RN NOTE BLOOD TRANSFUSION COMPLETED. VITAL SIGNS STABLE, PATIENT DOES NOT REPORT SHORTNESS OF BREATH OR ANY ADVERSE EFFECT. WILL CONTINUE TO MONITOR.
[2021-09-22 18:17] LABS: PROSTATE SPECIFIC ANTIGEN SCR 1.19 ng/mL (0.00-4.00)
--- NOTE | 2021-09-22 18:53 | NUR ---
RN CLOSING NOTE PATIENT REMAINS IN BED, AWAKE, A&OX4. PATIENT ON ROOM AIR WITH NO SIGNS OF LABORED BREATHING AT THIS TIME. RIGHT FA IV AND LEFT UA PICC LINE IN PLACE, PATENT. NO SIGNS OF ACUTE DISTRESS NOTED AT THIS TIME. ALL NEEDS ATTENDED DURING SHIFT. BED LOCKED AND IN LOWEST POSITION, CALL LIGHT WITHIN REACH, 2 SIDE RAILS UP. WILL ENDORSE TO ALUMNI RELATIONS OFFICER NURSE.
--- NOTE | 2021-09-22 19:10 | NUR ---
RN NOTES RECEIVED REPORT FROM MORNING RN PATIENT A/O X4 ABLE TO MAKE NEEDS KNOWS SITTING AT THE EDGE OF THE BED WITH CG AT BEDSIDE. WITH IV ACCESS RFA, AND LAST PICC LINE PATENT FLUSHES WELL. WITH ONGOING DOBUTAMINE DRIP AT 8MCG/KG/MIN @ 21MM/HR. VITAL SIGNS TAKEN AND RECORDED AFEBRILE. ALL SAFETY MEASURES IN PLACE AT ALL TIMES. HOB ELEVATED. CALL LIGHT WITHIN REACH. BED ON LOWEST POSITION AND LOCKED. WILL CLOSELY MONITOR THE PATIENT
[2021-09-22] MEDS: FINASTERIDE (5 MG) 5 MG TABLET PO SCH (21:34)
[2021-09-22] MEDS: SENNOSIDES 8.6 MG TABLET PO SCH (21:34)
[2021-09-22] MEDS: FAMOTIDINE (20 MG) 20 MG TABLET PO SCH (21:34)
[2021-09-23] VITALS (7 sets, daily range): BP systolic 100–116; BP diastolic 52–68
[2021-09-23 06:42] LABS: BASOPHILS # (AUTO) 0.1 K/uL (0.0-0.2); BASOPHILS % (AUTO) 1.4 % (0.0-2.0); EOSINOPHILS % (AUTO) 6.2 % (0.0-6.0); HEMATOCRIT 25 % (39-51); LYMPHOCYTES # (AUTO) 1.8 K/uL (0.8-4.8); LYMPHOCYTES % (AUTO) 28.9 % (20.0-44.0); MEAN CORPUSCULAR HGB CONC 32 g/dl (31.0-36.0); MEAN CORPUSCULAR VOLUME 86 fL (80-96); MONOCYTES # (AUTO) 0.7 K/uL (0.1-1.30); MONOCYTES % (AUTO) 10.6 % (2.0-12.0); NEUTROPHILS # (AUTO) 3.3 K/uL (1.8-8.9); NEUTROPHILS % (AUTO) 52.9 % (43.0-81.0); PLATELET COUNT (AUTO) 272 K/uL (150-450); RED BLOOD CELL COUNT(AUTO) 2.95 MIL/uL (4.5-6.0); WHITE BLOOD COUNT (AUTO) 6.2 K/uL (4.3-11.0)
--- NOTE | 2021-09-23 06:48 | NUR ---
RN NOTES PATIENT REMAINS STABLE NO SIGNIFICANT CHANGES. STILL ON DOBUTAMINE DRIP @8MCG @ 21ML/HR. ALL DUE MEDS GIVEN ORDERED. ALL NEEDS ATTENDED. KEPT CLEAN AND DRY AT ALL TIMES. CG AT BEDSIDE 31/12. WILL CLOSELY MONITOR THE PATIENT. ENDORSED TO MORNING SHIFT FOR TANK
[2021-09-23 07:01] LABS: CALCIUM, SERUM 8.2 mg/dL (8.5-10.1); MAGNESIUM 2.3 mg/dL (1.8-2.4); PHOSPHORUS 3.3 mg/dL (2.5-4.9)
[2021-09-23 07:07] LABS: IMMUNOGLOBULIN A, SERUM 314 mg/dL (61-437); IMMUNOGLOBULIN G, SERUM 1008 mg/dL (603-1613); IMMUNOGLOBULIN M, SERUM 187 mg/dL (20-172)
--- NOTE | 2021-09-23 07:30 | NUR ---
RN OPENING NOTES RECEIVED PATIENT IN BED. AWAKE ALERT ORIENTED X 4. NOT IN DISTRESS. NO COMPLAINTS OF PAIN NOTED. VERBALLY RESPONSIVE. WITH CAREGIVER AT BEDSIDE. PATIENT WITH IV SITE LAST PICC AND RFA PATENT AND INTACT WITH DOBUTAMINE DRIP 8MCG @ 21CC/HR. CALL LIGHT WITHIN REACH. BED TO LOWEST POSITION AND LOCKED.
[2021-09-23] MEDS: LINAGLIPTIN 5 MG TABLET PO SCH (08:23)
[2021-09-23] MEDS: FUROSEMIDE 40 MG TABLET PO SCH ×2 (08:23→16:29)
[2021-09-23] MEDS: PANTOPRAZOLE 40 MG TABLET.DR PO SCH (08:23)
[2021-09-23] MEDS: LEVOTHYROXINE SODIUM 100 MCG TABLET PO SCH (08:23)
[2021-09-23] MEDS: ISOSORBIDE MONONITRATE (30MG) 30 MG TAB.SR.24H PO SCH (08:24)
[2021-09-23] MEDS: METOCLOPRAMIDE HCL 10 MG TABLET PO SCH ×2 (08:24→16:28)
[2021-09-23] MEDS: GABAPENTIN 300 MG CAPSULE PO SCH ×2 (08:25→16:29)
[2021-09-23] MEDS: JARDIANCE 25 MG PO SCH (08:25)
[2021-09-23] MEDS: MIDODRINE HCL (5MG) 5 MG TABLET PO SCH ×3 (08:25→16:28)
[2021-09-23] MEDS: TICAGRELOR 90 MG TABLET PO SCH ×2 (08:25→16:27)
[2021-09-23] MEDS: FLUTICASONE/VILANTEROL 1 EACH BLST.W.DEV IH SCH (08:36)
[2021-09-23] MEDS: DOBUTamine 500 MG in IV D5W 210 ML IV PRN ×2 (09:25→20:22)
[2021-09-23] MEDS ORDERED: RIVA10TA PO (12:54)
[2021-09-23] MEDS ORDERED: METO-295 PO (12:54)
[2021-09-23] MEDS ORDERED: AMYL1CAP58 PO (12:54)
[2021-09-23] MEDS ORDERED: MIDO5TAB4 PO (12:54)
[2021-09-23] MEDS ORDERED: TICA90TA PO (12:54)
[2021-09-23] MEDS: SOD FERRIC GLUC 125 MG in IV NS 0.9% 100 ML IV SCH (14:34)
[2021-09-23] MEDS: RIVAROXABAN 10 MG TABLET PO SCH ×3 (16:28→17:00)
[2021-09-23] MEDS: SENNOSIDES 8.6 MG TABLET PO SCH (17:26)
--- NOTE | 2021-09-23 17:26 | NUR ---
RN NOTES PATIENT REQUESTED FOR A STOOL SOFTENER. PATIENT'S MEDICATIONS REVIEWED AND PATIENT HAS DUE [employer] MED AT 2200. PATIENT STATED WANT TO TAKE THE MEDICATION EARLIER THAN SCHEDULED.
--- NOTE | 2021-09-23 18:27 | NUR ---
RN CLOSING NOTES PATIENT SITTING AT BEDSIDE WITH CAREGIVER. NOT IN DISTRESS, NO COMPLAINTS OF PAIN NOTED. WITH DC ORDER AND AWAITING FOR HOMEHEALTH TO COORDINATE FOR DISCHARGE GIVEN PATIENT TO GO DISCHARGE WITH DOBUTAMINE DRIP. BED TO LOWEST POSITION AND LOCKED. CALL LIGHT WITHIN REACH. WILL ENDORSE TO NIGHT NURSE ON DUTY.
--- NOTE | 2021-09-23 19:10 | NUR ---
RN NOTES RECEIVED REPORT FROM MORNING RN. PATIENT IN BED A/O X4 CG AT BEDSIDE. WITH IV ACCESS AT L PICC LINE PATENT FLUSHES WELL. ON IV DRIP OF DOBUTAMINE @ 8MCG/KG/MIN @ 21CC/HR. VITAL SIGNS TAKEN AND RECORDED AFEBRILE. ALL SAFETY MEASURES IN PLACE AT ALL TIMES. HOB ELEVATED. CALL LIGHT WITHIN REACH. WILL CLOSELY MONITOR THE PATIENT
--- NOTE | 2021-09-23 21:30 | NUR ---
RN NOTES HOME HEALTH PHARMACIST CAME IN TO SET UP DRIP FOR PATIENT.
--- NOTE | 2021-09-23 22:08 | NUR ---
RN NOTES DISCHARGE INSTRUCTIONS GIVEN TO PATIENT AND . DOBUTAMINE SET UP BY HOME HEALTH PHARMACIST.BELONGING CHECK AND SIGNED BY PATIENT. PRESCRIPTIONS GIVEN. WHEEL PATIENT OUTSIDE. LEFT THE HOSPITAL VIA PRIVATE CAR WITH AND CG.
[2021-09-25 12:05] LABS: *SPE A/G RATIO 1.1 (0.7-1.7); *SPE ALPHA-1-GLOBULIN 0.3 g/dL (0.0-0.4); *SPE ALPHA-2-GLOBULIN 0.6 g/dL (0.4-1.0); *SPE BETA GLOBULIN 0.9 g/dL (0.7-1.3); *SPE M-SPIKE Not Observed g/dL (Not Observed)
== END 2021-09-23 22:08 | disposition home health service (06) | DRG 393 ==
LOC: ER 20:50 → TELE1 09-19 00:42 → TELE-TD 09-20 21:32 → TELE1 09-23 17:39
PROVIDERS: ADMIT Nurse Practitioner Acute Care; ATTEND Student in an Organized Health Care Education/Training Program
PROC: 30233N1 Transfusion of Nonautologous Red Blood Cells into Peripheral Vein, Percutaneous Approach (ICD-10-PCS; 2021-09-18)
PROC: 0DJ08ZZ Inspection of Upper Intestinal Tract, Via Natural or Artificial Opening Endoscopic (ICD-10-PCS; principal; 2021-09-23)
DX: T18.2XXA Foreign body in stomach, initial encounter (principal); I21.A1 Myocardial infarction type 2; I50.33 Acute on chronic diastolic (congestive) heart failure; N17.0 Acute kidney failure with tubular necrosis; I13.0 Hypertensive heart and chronic kidney disease with heart failure and stage 1 through stage 4 chronic kidney disease, or unspecified chronic kidney disease; E87.1 Hypo-osmolality and hyponatremia; D68.9 Coagulation defect, unspecified; E87.2 Acidosis; R18.8 Other ascites; K21.9 Gastro-esophageal reflux disease without esophagitis; I25.10 Atherosclerotic heart disease of native coronary artery without angina pectoris; E03.9 Hypothyroidism, unspecified; Z20.822 Contact with and (suspected) exposure to COVID-19; E78.5 Hyperlipidemia, unspecified; N40.0 Benign prostatic hyperplasia without lower urinary tract symptoms; E11.22 Type 2 diabetes mellitus with diabetic chronic kidney disease; D63.8 Anemia in other chronic diseases classified elsewhere; N18.9 Chronic kidney disease, unspecified; Z98.61 Coronary angioplasty status; Z79.84 Long term (current) use of oral hypoglycemic drugs; Z53.20 Procedure and treatment not carried out because of patient's decision for unspecified reasons; E88.09 Other disorders of plasma-protein metabolism, not elsewhere classified; I25.2 Old myocardial infarction; I25.5 Ischemic cardiomyopathy; K57.90 Diverticulosis of intestine, part unspecified, without perforation or abscess without bleeding; K80.20 Calculus of gallbladder without cholecystitis without obstruction; Z87.09 Personal history of other diseases of the respiratory system; D50.9 Iron deficiency anemia, unspecified; X58.XXXA Exposure to other specified factors, initial encounter; Y92.9 Unspecified place or not applicable; K63.89 Other specified diseases of intestine
CPT/HCPCS: 36415; 71045-TC; 76700-TC; 78226; 80048-TC; 80053-TC; 80061-TC; 80076-TC; 82378; 82607-TC; 82728-TC; 82784; 83540-TC; 83735-TC; 83880; 84100-TC; 84153-TC; 84154-TC; 84155; 84165; 84443-TC; 84484-TC; 85025-TC; 85610-TC; 85730-TC; 86334; 86850-TC; 86900-TC; 87081-TC; 93307-TC; A9537; C9803; G0378; J1250; J1650; J1940; J2405; J2704; J2765; J2916; J3490; J7030; J7040; J7050; J7060; J8597; P9016; Q9967

== ENCOUNTER 2021-11-07 09:53 | Outpatient (CLI) | payer MEDICARE, OTHER ==
[~2021-11-07 09:53] MED LIST changes: -AMOX500C2 PO; +AMYL1CAP58 PO; +METO-295 PO; -METO5TAB2 PO; +MIDO5TAB4 PO; -OMEP40CA21 PO; +RIVA10TA PO; +TICA90TA PO
== END 2021-11-07 23:59 | disposition home or self-care (01) ==
LOC: RAD 09:53
PROVIDERS: ATTEND Internal Medicine Hematology & Oncology
DX: D47.2 Monoclonal gammopathy (principal); Z95.9 Presence of cardiac and vascular implant and graft, unspecified
CPT/HCPCS: 77075-TC

== ENCOUNTER 2022-01-01 14:11 | Inpatient (IN) | payer MEDICARE, OTHER ==
[~2022-01-01] VITALS: Ht 185.4 cm; Wt 88.0 kg
--- NOTE | 2022-01-01 14:39 | NUR ---
aliyah from home, c/o dizziness x 2 weeks, nausea since fridat also endorsed constipation for couple weeks. On room air, breathing evenly and unlabored. LAST picc line 2 lumen with dobutamine 10.8 ml/hr infusing well. Alert and oriented x 4 verbally responsive and able to make needs known. Kept comfortable, will continue to monitor accordingly. connected to the monitor and pulse ox, a-flutter HR 55. Denies any pain at this time.
[2022-01-01] MEDS ORDERED: MORPHINE SULFATE INJ 4 MG/ML DISP.SYRIN ONE (15:18)
[2022-01-01] MEDS ORDERED: METOCLOPRAMIDE HCL 10 MG/2 ML VIAL ONE (15:18)
[2022-01-01] MEDS ORDERED: METOCLOPRAMIDE HCL 10 MG/2 ML VIAL IV ONE (15:30)
[2022-01-01] MEDS ORDERED: MORPHINE SULFATE INJ 2 MG/ML DISP.SYRIN IV ONE (15:30)
[2022-01-01 15:34] LABS: BASOPHILS # (AUTO) 0.1 K/uL (0.0-0.2); BASOPHILS % (AUTO) 0.9 % (0.0-2.0); EOSINOPHILS % (AUTO) 1.1 % (0.0-6.0); HEMATOCRIT 41 % (39-51); HEMOGLOBIN 13.3 g/dL (13.5-17.5); LYMPHOCYTES % (AUTO) 15.2 % (20.0-44.0); MEAN CORPUSCULAR HGB CONC 33 g/dl (31.0-36.0); MEAN CORPUSCULAR VOLUME 79 fL (80-96); MONOCYTES # (AUTO) 0.6 K/uL (0.1-1.30); MONOCYTES % (AUTO) 9.6 % (2.0-12.0); NEUTROPHILS # (AUTO) 4.7 K/uL (1.8-8.9); NEUTROPHILS % (AUTO) 73.2 % (43.0-81.0); PLATELET COUNT (AUTO) 223 K/uL (150-450); RED BLOOD CELL COUNT(AUTO) 5.15 MIL/uL (4.5-6.0); WHITE BLOOD COUNT (AUTO) 6.4 K/uL (4.3-11.0)
[2022-01-01 16:13] LABS: CARBON DIOXIDE 37 mmol/L (21-32)
[2022-01-01 16:37] LABS: ALANINE AMINOTRANSFERASE 27 U/L (12-78); ALKALINE PHOSPHATASE 155 U/L (46-116); ASPARTATE AMINOTRANSFERASE 18 U/L (15-37); BILIRUBIN,DIRECT 0.1 mg/dL (0.0-0.2); BILIRUBIN,TOTAL 0.5 mg/dL (0.2-1.0); CALCIUM, SERUM 9.2 mg/dL (8.5-10.1); CHLORIDE 90 mmol/L (98-107); CREATININE 1.7 mg/dL (0.6-1.3); GLUCOSE 169 mg/dL (74-106); POTASSIUM 3.1 mmol/L (3.5-5.1); SODIUM SERUM 133 mmol/L (136-145); TOTAL PROTEIN, SERUM 8.1 g/dL (6.4-8.2); UREA NITROGEN, BLOOD 62 mg/dL (7-18)
[2022-01-01] MEDS ORDERED: POTASSIUM CHLORIDE 20 MEQ TAB.PRT.SR PO ONE ×2 (17:25→17:30)
--- NOTE | 2022-01-01 17:25 | NUR ---
COVID SWAB COLLECTED AND SENT TO LAB
--- NOTE | 2022-01-01 17:33 | NUR ---
COVID TEST COLLECTED AND SENT
--- NOTE | 2022-01-01 17:53 | NUR ---
CALLED NURSING SUP REGARDING PT BED
[2022-01-01] MEDS ORDERED: ZOLPIDEM TARTRATE 5 MG TABLET PO PRN (18:00)
[2022-01-01] MEDS ORDERED: Z GUARD REMEDY 4 OZ OINT TP PRN (18:00)
[2022-01-01] MEDS ORDERED: HYDROCODONE/APAP 5/325MG TABLET PO PRN (18:00)
[2022-01-01] MEDS ORDERED: MORPHINE SULFATE INJ 2 MG/ML DISP.SYRIN IV PRN (18:00)
[2022-01-01] MEDS ORDERED: MAG HYDROX/AL HYDROX/SIMETH 30 ML UDC PO PRN (18:00)
[2022-01-01] MEDS ORDERED: MAGNESIUM HYDROXIDE 30 ML UDC PO PRN (18:00)
[2022-01-01] MEDS ORDERED: ONDANSETRON HCL/PF 4 MG/2 ML VIAL IVP PRN (18:00)
[2022-01-01] MEDS ORDERED: ACETAMINOPHEN 325 MG TABLET PO PRN (18:00)
[2022-01-01] MEDS ORDERED: POTA20TA83 PO (18:01)
[2022-01-01] MEDS ORDERED: [UNRECOGNIZED DRUG - OTHER] PO (18:01)
[2022-01-01] MEDS ORDERED: AMIO200T5 PO (18:01)
[2022-01-01] MEDS ORDERED: PREG-58 PO (18:01)
[2022-01-01] MEDS ORDERED: OMEP40CA21 PO (18:01)
[2022-01-01] MEDS ORDERED: MODAFINIL PO (18:01)
[2022-01-01] MEDS ORDERED: ONDA8TAB13 SL (18:01)
[2022-01-01] MEDS ORDERED: APIX5TAB PO (18:01)
[2022-01-01] MEDS ORDERED: BUME2TAB7 PO (18:01)
[2022-01-01] MEDS ORDERED: METO-295 PO (18:01)
[2022-01-01] MEDS ORDERED: TICA90TA PO (18:01)
[2022-01-01] MEDS ORDERED: TEST1.257 TP (18:01)
[2022-01-01] MEDS ORDERED: FLUT1BLS INH (18:01)
[2022-01-01] MEDS ORDERED: NITR0.4T48 SL (18:01)
[2022-01-01] MEDS ORDERED: SPIR25TA6 PO (18:01)
[2022-01-01] MEDS ORDERED: POTA-10 PO (18:01)
[2022-01-01] MEDS ORDERED: EZET10TA32 PO (18:01)
[2022-01-01] MEDS ORDERED: SACU1TAB PO (18:01)
[2022-01-01] MEDS ORDERED: MAGN250T2 PO (18:01)
[2022-01-01] MEDS ORDERED: HYDR-4275 PO (18:01)
[2022-01-01] MEDS ORDERED: METO2.5T7 PO (18:15)
--- NOTE | 2022-01-01 18:56 | NUR ---
ROOM 310-2
[2022-01-01 20:00] VITALS: BP 108/68
--- NOTE | 2022-01-01 20:15 | NUR ---
PATIENT IS ON CONT. dOBUTAMIN VIA PICC. DR CAT MADE AWARE WITH A NEW ORDER TO UPGRADE PT TO TELE TD. NOTED
--- NOTE | 2022-01-01 21:08 | NUR ---
REPORT GIVEN TO CHRISTOPHER
--- NOTE | 2022-01-01 21:19 | NUR ---
PT TRANSPORTED TO ROOM 117-2 ON GAGGERMAN PER ACLS IN STABLE CONDITION
--- NOTE | 2022-01-01 21:30 | NUR ---
ADMISSION RN NOTES, RECEIVED 66 Y O MALE ADMITTED FROM ER DEPARTMENT, UNDER [facility], WITH ADMITTING DX FLO/WEAKNESS, PATIENT A/4 X4 ABLE TO VERBALIZE NEEDS AND CONCERNS, AT ROOM AIR, NO SOB/ACUTE DISTRESS NOTED AT THIS TIME, CONNECTED TO TELE DISTILLERY MILLER HELPER AND SINUS DAVID IN MONITOR WITH HR 50S, FILIPE PICC LINE WITH 2 LUMENS, INFUSING DOBUTAMINE FROM HOME AT 8MG/KG/MIN, AFEBRILE AND SKIN INTACT, CAREGIVER 24/ AT BEDSIDE, WILL CONTINUE TO MONITOR CLOSELY, BED LOCKED AND IN LOWEST POSITION, CALL LIGHT W/I REACH.
--- NOTE | 2022-01-01 21:40 | NUR ---
PER AMIRA ARDON NEWSPAPER REPORTER TO CONTINUE WITH DOBUTAMINE 8MCG/KG/MIN FIXED RATE.
[2022-01-01] MEDS: IV NS 0.9% 1,000 ML IV SCH (22:03)
--- NOTE | 2022-01-01 22:37 | NUR ---
PATIENT STATED HE IS TAKING LYRICA 75MG Q12H, AND WANTS THE DOSE AT NIGHT, WELL REGLAN 5MG Q12H, PER AMIRA ARDON CENTRIFUGAL CASTING MACHINE OPERATOR TO CONTINUE THOSE MEDICATIONS, ORDERS NOTED AND CARRIED OUT.
[2022-01-01] MEDS: PREGABALIN 25 MG CAPSULE PO SCH (22:53)
[2022-01-01] MEDS: METOCLOPRAMIDE HCL 10 MG TABLET PO SCH (22:54)
[2022-01-02] VITALS: BP 99/46
[2022-01-02] MEDS ORDERED: DoBUTamine 500 MG/250 ML PIGGYBACK IV PRN (02:00)
[2022-01-02 04:00] VITALS: BP 104/76
[2022-01-02 06:49] LABS: BASOPHILS # (AUTO) 0.1 K/uL (0.0-0.2); BASOPHILS % (AUTO) 1.1 % (0.0-2.0); EOSINOPHILS % (AUTO) 2.6 % (0.0-6.0); HEMATOCRIT 38 % (39-51); HEMOGLOBIN 12.4 g/dL (13.5-17.5); LYMPHOCYTES # (AUTO) 1.3 K/uL (0.8-4.8); LYMPHOCYTES % (AUTO) 22.6 % (20.0-44.0); MEAN CORPUSCULAR HGB CONC 33 g/dl (31.0-36.0); MEAN CORPUSCULAR VOLUME 80 fL (80-96); MONOCYTES # (AUTO) 0.7 K/uL (0.1-1.30); MONOCYTES % (AUTO) 12.6 % (2.0-12.0); NEUTROPHILS # (AUTO) 3.6 K/uL (1.8-8.9); NEUTROPHILS % (AUTO) 61.1 % (43.0-81.0); PLATELET COUNT (AUTO) 204 K/uL (150-450); RED BLOOD CELL COUNT(AUTO) 4.75 MIL/uL (4.5-6.0); WHITE BLOOD COUNT (AUTO) 5.9 K/uL (4.3-11.0)
--- NOTE | 2022-01-02 06:56 | NUR ---
RN CLOSING NOTES; PATIENT IN BED ASLEEP, A/O X4 ABLE TO VERBALIZE NEEDS AND CONCERNS, NO S/S OF RESPIRATORY DISTRESS, AT ROOM AIR, SINUS DAVID IN TELE MONITOR, WIT HR IN 50S, EPISODES OF HR IN MID 40S REVA COLLIER AWARE, PATIENT WITH DOBUTAMINE DRIP INFUSING AT 8MCG/KG/MIN FROM HOME,START THE FLUIDS, PHARMACY WILL PROVIDE NEW BAG LEFT PICC LINE IN PLACE PATENT AND INTACT, 0.9% AT 75ML/HR, PT WITH CHF BUT PER REVA OK TO , CAREGIVER AT BEDSIDE, NO SIGNIFICANT CHANGE IN CONDITION DURING THE NIGHT, BED LOCKED AND IN LOWEST POSITION, SAFETY MEASURES IN PLACE, CALL LIGHT WITHIN REACH, WILL ENDORSE CONTINUITY OF CARE TO ONCOMING NURSE.
[2022-01-02 07:07] LABS: CALCIUM, SERUM 8.5 mg/dL (8.5-10.1); CREATININE 1.6 mg/dL (0.6-1.3); PHOSPHORUS 4.1 mg/dL (2.5-4.9); POTASSIUM 3.2 mmol/L (3.5-5.1)
[2022-01-02 07:19] LABS: THYROID STIMULATING HORMONE 1.253 uIU/mL (0.358-3.74)
[2022-01-02] MEDS ORDERED: PANTOPRAZOLE 40 MG TABLET.DR PO SCH (07:30)
--- NOTE | 2022-01-02 07:30 | NUR ---
RN/T-RONN OPENING NOTE PATIENT AWAKE AND ALERT A&OX4. ALL VSS. SB 60-50. PATIENT SATTING AT 97% ON ROOM AIR. DIET CARDIAC. IV LAST PICC PATENT, INTACT. ALL SAFETY FALL PRECAUTIONS IN PLACE BED IN LOWEST POSITION, BED LOCK ON, BED ALARM ON, SIDE RAILS UP, CALL LIGHT WITHIN REACH. WILL CONTINUE TO MONITOR.
[2022-01-02 07:48] LABS: MAGNESIUM 4.1 mg/dL (1.8-2.4)
[2022-01-02] MEDS: IV NS 0.9% 1,000 ML IV SCH ×2 (07:50→11:12)
--- NOTE | 2022-01-02 07:50 | NUR ---
RN/T-RONN CRITICAL LAB RECEIVED FROM LAB. MAGNESIUM 4.1 DOCTOR NOTIFIED. WAITING FOR ORDERS.
--- NOTE | 2022-01-02 08:00 | NUR ---
RN/T-RONN NOTE PATIENT RECEIVED SOME JUICE AND TOWEL FOR CLEANING. PATIENT RESTING COMFORTABLY ON THE BED. WILL CONTINUE TO MONITOR. ALL SAFETY PRECAUTIONS IN PLACE.
[2022-01-02] MEDS ORDERED: DOBUTamine 500 MG in IV D5W 210 ML IV PRN (08:30)
[2022-01-02] MEDS: METOCLOPRAMIDE HCL 10 MG TABLET PO SCH (08:33)
[2022-01-02] MEDS: PREGABALIN 25 MG CAPSULE PO SCH (08:33)
[2022-01-02] MEDS ORDERED: POTASSIUM CHLORIDE 20 MEQ TAB.PRT.SR PO SCH (09:00)
--- NOTE | 2022-01-02 09:30 | NUR ---
RN/T-RONN NOTE DOCTOR RESPONDED TO CRITICAL LAB AND HAS ADVISED TO CONTACT NEPHROLOGY FOR CONSULT. CONSULT WILL BE ENTERED.
[2022-01-02] MEDS: POTASSIUM CHLORIDE 20 MEQ TAB.PRT.SR PO SCH ×3 (10:31→13:50)
[2022-01-02] MEDS ORDERED: ASPIRIN 81 MG TAB.CHEW PO SCH (11:00)
[2022-01-02 11:13] LABS: IRON, SERUM 70 ug/dl (50-175); TOTAL IRON BINDING CAPACITY 273 ug/dl (250-450)
[2022-01-02 11:18] LABS: FERRITIN 209 ng/mL (8-388)
--- NOTE | 2022-01-02 12:26 | NUR ---
RN/T-RONN NOTE PATIENT'S CENTRAL LINE (PIAA) LEFT UPPER ARM DRESSING WAS REMOVED, AREA WAS CLEANSED AND A NEW DRESSING WAS APPLIED, DRESSING WAS LABELED.
[2022-01-02] MEDS ORDERED: APIXABAN 5 MG TABLET PO SCH (13:00)
--- NOTE | 2022-01-02 14:10 | NUR ---
RN/T-RONN DISCHARGE NOTE PATIENT DISCHARGED HOME ALL VSS. PATIENT SATTING ATV 98% ON ROOM AIR NON LABORED BREATHING. PATIENT STABLE NO SIGNS OF DISTRESS. ALL BELONGING WERE SENT HOME WITH THE PATIENT. INSTRUCTIONS ON DISCHARGE AND FOLLOW UP APPOINTMENTS WERE PROVIDED. PATIENT LEFT WITH AND CAREGIVER VIA WHEEL CHAIR.
[2022-01-02] MEDS ORDERED: TICAGRELOR 90 MG TABLET PO SCH (17:00)
[2022-01-03 07:07] LABS: IMMUNOGLOBULIN A, SERUM 351 mg/dL (61-437); IMMUNOGLOBULIN G, SERUM 1047 mg/dL (603-1613); IMMUNOGLOBULIN M, SERUM 159 mg/dL (20-172)
[2022-01-03 10:07] LABS: *SPE A/G RATIO 1.2 (0.7-1.7); *SPE ALPHA-1-GLOBULIN 0.2 g/dL (0.0-0.4); *SPE ALPHA-2-GLOBULIN 0.7 g/dL (0.4-1.0); *SPE M-SPIKE Not Observed g/dL (Not Observed)
== END 2022-01-02 12:00 | disposition home or self-care (01) | DRG 391 ==
LOC: ER 15:11 → OBSVTOIN 19:45 → TELE 19:45 → TELE1 20:36 → TELE-TD 21:36 → TELE1 01-02 09:44
PROVIDERS: ADMIT Student in an Organized Health Care Education/Training Program; ATTEND Internal Medicine
DX: K59.09 Other constipation (principal); N17.0 Acute kidney failure with tubular necrosis; E87.1 Hypo-osmolality and hyponatremia; E87.4 Mixed disorder of acid-base balance; I11.0 Hypertensive heart disease with heart failure; I50.9 Heart failure, unspecified; E83.41 Hypermagnesemia; E78.5 Hyperlipidemia, unspecified; E86.0 Dehydration; D47.2 Monoclonal gammopathy; D63.8 Anemia in other chronic diseases classified elsewhere; E03.9 Hypothyroidism, unspecified; E11.9 Type 2 diabetes mellitus without complications; E87.6 Hypokalemia; I25.2 Old myocardial infarction; K21.9 Gastro-esophageal reflux disease without esophagitis; K57.90 Diverticulosis of intestine, part unspecified, without perforation or abscess without bleeding; I25.10 Atherosclerotic heart disease of native coronary artery without angina pectoris; K80.20 Calculus of gallbladder without cholecystitis without obstruction; N40.0 Benign prostatic hyperplasia without lower urinary tract symptoms; Z79.01 Long term (current) use of anticoagulants; Z98.61 Coronary angioplasty status; Z79.51 Long term (current) use of inhaled steroids; Z79.899 Other long term (current) drug therapy; Z88.8 Allergy status to other drugs, medicaments and biological substances; Z91.018 Allergy to other foods; Z20.822 Contact with and (suspected) exposure to COVID-19
CPT/HCPCS: 36415; 71045-TC; 80048-TC; 80076-TC; 82232; 82728-TC; 82784; 83540-TC; 83735-TC; 83880; 84100-TC; 84155; 84165; 84443-TC; 84484-TC; 85025-TC; 86334; 87081-TC; 97116-TC; 97530-TC; C9803; G0378; J1250; J2270; J2405; J2765; J7030; J7060; J8597

== ENCOUNTER 2022-02-01 10:54 | Outpatient (CLI) | payer MEDICARE, OTHER ==
[~2022-02-01 10:54] MED LIST changes: +AMIO200T5 PO; -AMYL1CAP58 PO; +APIX5TAB PO; +BUME2TAB7 PO; +EZET10TA32 PO; +FLUT1BLS INH; -FLUT1BLS PO; -FURO80TA85 PO; -GABA-532 PO; +HYDR-4275 PO; -ISOS60TA72 PO; +MAGN250T2 PO; +METO2.5T7 PO; -MIDO5TAB4 PO; +MODAFINIL PO; +NITR0.4T48 SL; +OMEP40CA21 PO; +ONDA8TAB13 SL; +POTA-10 PO; +POTA20TA83 PO; +PREG-58 PO; -RIVA10TA PO; +SACU1TAB PO; +SPIR25TA6 PO; +TEST1.257 TP; +[UNRECOGNIZED DRUG - OTHER] PO
== END 2022-02-01 23:59 | disposition home or self-care (01) ==
LOC: MSC 10:54
PROVIDERS: ATTEND Internal Medicine
DX: N17.9 Acute kidney failure, unspecified (principal); I42.8 Other cardiomyopathies; Z98.61 Coronary angioplasty status; I95.9 Hypotension, unspecified; E11.40 Type 2 diabetes mellitus with diabetic neuropathy, unspecified; E11.319 Type 2 diabetes mellitus with unspecified diabetic retinopathy without macular edema; E03.9 Hypothyroidism, unspecified; Z79.890 Hormone replacement therapy; D49.7 Neoplasm of unspecified behavior of endocrine glands and other parts of nervous system; K59.00 Constipation, unspecified

== ENCOUNTER 2022-02-22 11:28 | Outpatient (CLI) | payer MEDICARE, OTHER | END 2022-02-22 23:59 | disposition home or self-care (01) | LOC: MSC 11:28 | PROVIDERS: ATTEND Internal Medicine | DX: I42.8 Other cardiomyopathies (principal); N17.9 Acute kidney failure, unspecified; I95.9 Hypotension, unspecified; N40.0 Benign prostatic hyperplasia without lower urinary tract symptoms; D64.9 Anemia, unspecified; E11.40 Type 2 diabetes mellitus with diabetic neuropathy, unspecified; E11.319 Type 2 diabetes mellitus with unspecified diabetic retinopathy without macular edema; E03.9 Hypothyroidism, unspecified; Z79.890 Hormone replacement therapy; K59.00 Constipation, unspecified; D49.7 Neoplasm of unspecified behavior of endocrine glands and other parts of nervous system ==

== ENCOUNTER 2022-04-03 11:20 | Outpatient (CLI) | payer MEDICARE, OTHER | END 2022-04-03 23:59 | disposition home or self-care (01) | LOC: MSC 11:20 | PROVIDERS: ATTEND Internal Medicine | DX: N17.9 Acute kidney failure, unspecified (principal); R05.9 Cough, unspecified; Z86.16 Personal history of COVID-19; I42.8 Other cardiomyopathies; E87.6 Hypokalemia; I95.9 Hypotension, unspecified; N40.0 Benign prostatic hyperplasia without lower urinary tract symptoms; D64.9 Anemia, unspecified; E11.40 Type 2 diabetes mellitus with diabetic neuropathy, unspecified; E11.319 Type 2 diabetes mellitus with unspecified diabetic retinopathy without macular edema; E03.9 Hypothyroidism, unspecified; Z79.890 Hormone replacement therapy; K59.00 Constipation, unspecified; D49.7 Neoplasm of unspecified behavior of endocrine glands and other parts of nervous system; Z79.899 Other long term (current) drug therapy ==

== ENCOUNTER 2023-05-03 13:09 | Inpatient (IN) | payer MEDICARE, OTHER ==
[~2023-05-03] VITALS: Ht 172.7 cm; Wt 99.8 kg
[2023-05-03] MEDS ORDERED: ONDANSETRON HCL/PF 4 MG/2 ML VIAL ONE (13:27)
[2023-05-03] MEDS ORDERED: IV NS 0.9% 1,000 ML BAG IV ONE (13:30)
[2023-05-03] MEDS ORDERED: ONDANSETRON HCL/PF 4 MG/2 ML VIAL IVP ONE (13:30)
[2023-05-03] MEDS ORDERED: ONDANSETRON HCL/PF 4 MG/2 ML VIAL IV ONE (13:30)
[2023-05-03 13:47] LABS: BASOPHILS % (AUTO) 0.2 % (0.0-2.0); HEMATOCRIT 37 % (39-51); HEMOGLOBIN 11.5 g/dL (13.5-17.5); LYMPHOCYTES % (AUTO) 7.5 % (20.0-44.0); MEAN CORPUSCULAR HEMOGLOBIN 26 PG (26.0-33.0); MEAN CORPUSCULAR HGB CONC 31 g/dl (31.0-36.0); MEAN CORPUSCULAR VOLUME 83 fL (80-96); MONOCYTES # (AUTO) 1.2 K/uL (0.1-1.30); NEUTROPHILS # (AUTO) 11.5 K/uL (1.8-8.9); NEUTROPHILS % (AUTO) 83.3 % (43.0-81.0); PLATELET COUNT (AUTO) 296 K/uL (150-450); RED BLOOD CELL COUNT(AUTO) 4.43 MIL/uL (4.5-6.0); RED CELL DISTRIBUTION WIDTH 19.5 % (11.5-15.0); WHITE BLOOD COUNT (AUTO) 13.8 K/uL (4.3-11.0)
[2023-05-03 13:56] LABS: CALCIUM, SERUM 8.7 mg/dL (8.5-10.1); POTASSIUM 4.4 mmol/L (3.5-5.1)
[2023-05-03 14:03] LABS: ALBUMIN 3.2 g/dL (3.4-5.0); BILIRUBIN,DIRECT 1.7 mg/dL (0.0-0.2); BILIRUBIN,TOTAL 2.2 mg/dL (0.2-1.0)
[2023-05-03] MEDS ORDERED: IOHEXOL-300 100 ML VIAL IV ONE (14:52)
[2023-05-03] MEDS ORDERED: CT SWABBABLE VALVE TRANS SET 1 EA INFUS.SET MC ONE (14:52)
[2023-05-03] MEDS ORDERED: IV NS 0.9% 250 ML IV ONE (14:52)
[2023-05-03] MEDS ORDERED: LORAZEPAM INJ 2 MG/ML VIAL IV ONE (15:30)
[2023-05-03] MEDS ORDERED: LORAZEPAM INJ 2 MG/ML VIAL ONE (15:34)
[2023-05-03] MEDS ORDERED: CITA10TA17 PO (18:57)
[2023-05-03] MEDS ORDERED: FURO80TA85 PO (18:57)
[2023-05-03] MEDS ORDERED: ZOLP10TA2 PO (18:57)
[2023-05-03] MEDS ORDERED: PIPERACILLIN /TAZOBACTAM 3.375 G in IV D5W 50 ML IV ONE (19:00)
[2023-05-03] MEDS ORDERED: LIDOCAINE 2% JEL UROJET 10 ML MM ONE (19:41)
[2023-05-03] MEDS ORDERED: DOBUTamine 12.5 MG/ML VIAL IV ONE (20:00)
[2023-05-03 20:31] LABS: APPEARANCE,URINE SLIGHTLY CLOUDY (CLEAR); BILIRUBIN,URINE 1+ (NEGATIVE); BLOOD, URINE 2+ Ery/uL (NEGATIVE); COLOR,URINE YELLOW (YELLOW); KETONES,URINE NEGATIVE (NEGATIVE); LEUKOCYTE ESTERASE ,URINE 2+ (NEGATIVE); NITRITE, URINE POSITIVE (NEGATIVE); PH,URINE 5.5 (5.0-8.0); PROTEIN,URINE 1+ mg/dl (NEGATIVE); UGLUCOSE 1+ mg/dL (NEGATIVE)
[2023-05-03 21:10] LABS: ADD URINE CULTURE YES; BACTERIA,URINE 3+ /HPF (None Seen); MUCUS,URINE Few /LPF (None Seen); RBC,URINE 21-50 /HPF (0-2); SQUAMOUS EPITHELIAL CELL,UR 0-2 /HPF (None Seen); WBC,URINE 21-50 /HPF (0-3)
[2023-05-03] MEDS ORDERED: DOBUTamine 250 MG in IV D5W 230 ML IV ONE (22:00)
[2023-05-03] MEDS ORDERED: Z GUARD REMEDY 4 OZ OINT TP PRN (22:00)
[2023-05-03] MEDS ORDERED: MORPHINE SULFATE INJ 2 MG/ML DISP.SYRIN IV PRN (22:00)
[2023-05-03] MEDS ORDERED: IV D5/ 0.9% NACL 1,000 ML IV PRN (22:00)
[2023-05-03] MEDS ORDERED: NITROGLYCERIN 0.4 MG/TAB BOTTLE SL PRN (22:30)
[2023-05-03] MEDS ORDERED: DEXTROSE 50%-WATER 50 ML DISP.SYRIN IV PRN (22:30)
[2023-05-03] MEDS ORDERED: METOCLOPRAMIDE HCL 10 MG/2 ML VIAL IV PRN (22:30)
[2023-05-04] VITALS (12 sets, daily range): BP systolic 94–111; BP diastolic 59–75; TEMP 97.5; O2SAT 98–100
[2023-05-04] MEDS ORDERED: ZOSYN IVPB 3.375 G in IV D5W 50ml IV ONE (04:00)
[2023-05-04 05:07] LABS: BASOPHILS % (AUTO) 0.1 % (0.0-2.0); HEMATOCRIT 36 % (39-51); HEMOGLOBIN 11.3 g/dL (13.5-17.5); LYMPHOCYTES # (AUTO) 1.1 K/uL (0.8-4.8); LYMPHOCYTES % (AUTO) 7.4 % (20.0-44.0); MEAN CORPUSCULAR HEMOGLOBIN 26 PG (26.0-33.0); MEAN CORPUSCULAR HGB CONC 31 g/dl (31.0-36.0); MEAN CORPUSCULAR VOLUME 83 fL (80-96); MONOCYTES # (AUTO) 1.2 K/uL (0.1-1.30); MONOCYTES % (AUTO) 8.3 % (2.0-12.0); NEUTROPHILS # (AUTO) 12.3 K/uL (1.8-8.9); NEUTROPHILS % (AUTO) 84.2 % (43.0-81.0); PLATELET COUNT (AUTO) 297 K/uL (150-450); RED BLOOD CELL COUNT(AUTO) 4.36 MIL/uL (4.5-6.0); RED CELL DISTRIBUTION WIDTH 19.6 % (11.5-15.0); WHITE BLOOD COUNT (AUTO) 14.6 K/uL (4.3-11.0)
[2023-05-04 05:28] LABS: ALBUMIN 3.1 g/dL (3.4-5.0); BILIRUBIN,DIRECT 1.7 mg/dL (0.0-0.2); BILIRUBIN,TOTAL 2.1 mg/dL (0.2-1.0); CALCIUM, SERUM 8.6 mg/dL (8.5-10.1); MAGNESIUM 2.7 mg/dL (1.8-2.4); PHOSPHORUS 5.5 mg/dL (2.5-4.9); TOTAL PROTEIN, SERUM 6.7 g/dL (6.4-8.2)
[2023-05-04 05:37] LABS: THYROID STIMULATING HORMONE 0.425 uIU/mL (0.358-3.74)
[2023-05-04] MEDS: BLOOD SUGAR DIAGNOSTIC 1 EACH STRIP IN SCH ×4 (06:00→18:09)
[2023-05-04] MEDS: ZOSYN IVPB 2.25 G in IV D5W 50ml IV SCH ×3 (07:00→18:27)
[2023-05-04] MEDS ORDERED: DOBUTamine 250 MG in IV D5W 230 ML IV ONE (08:00)
[2023-05-04] MEDS: PANTOPRAZOLE 40 MG TABLET.DR PO SCH (08:00)
[2023-05-04] MEDS ORDERED: [UNRECOGNIZED DRUG - CODE] (08:11)
[2023-05-04] MEDS: HEPARIN SODIUM, PORCINE 5000 UNITS/1 ML VIAL SQ SCH ×2 (09:00→21:22)
[2023-05-04] MEDS ORDERED: IV D5/0.45 NACL 1,000 ML IV PRN (09:00)
[2023-05-04] MEDS ORDERED: IV NS 0.9% 500 ML BAG IV ONE (10:30)
[2023-05-04] MEDS ORDERED: MIDAZOLAM HCL 2 MG/2ML VIAL ONE (13:37)
[2023-05-04] MEDS ORDERED: FENTANYL PF 100MCG/2ML AMPUL ONE (13:37)
[2023-05-04] MEDS ORDERED: ROCURONIUM BROMIDE 50 MG/5 ML ONE (13:37)
[2023-05-04] MEDS ORDERED: NOREPINEPHRINE 4 MG/4 ML AMPUL IV ONE (13:47)
[2023-05-04] MEDS ORDERED: PHYTONADIONE INJ 10 MG/1 ML AMPUL ONE (14:51)
[2023-05-04] MEDS ORDERED: BUPIVACAINE 0.25% 75 MG/30 ML VIAL ONE (14:53)
[2023-05-04] MEDS ORDERED: LIDOCAINE HCL/MPF 1% 30 ML VIAL IJ ONE ×2 (14:53→16:15)
[2023-05-04] MEDS ORDERED: ALBUMIN 5% 250 ML IV ONE (15:39)
[2023-05-04] MEDS ORDERED: CELLULOSE,OXIDIZED 1 EA PACK MC ONE (15:44)
[2023-05-04] MEDS ORDERED: GELATIN SPONGE,ABSORBABLE 1 EA SPONGE TP ONE (15:52)
[2023-05-04] MEDS ORDERED: GELATIN SPONGE,ABSORBABLE 1 SPONGE SPONGE TP ONE (15:53)
[2023-05-04] MEDS ORDERED: THROMBIN (BOVINE) 5,000 UNITS VIAL TP ONE (15:54)
[2023-05-04] MEDS ORDERED: BUPIVACAINE 0.5 % PF 150 MG/30 ML VIAL ONE (16:15)
[2023-05-04] MEDS ORDERED: BACITRACIN ZINC OINT (15 GM) 15 GM TUBE TP ONE (16:20)
[2023-05-04] MEDS ORDERED: DOBUTamine 250 MG in IV D5W 230 ML IV PRN (17:30)
[2023-05-04 17:37] LABS: HEMATOCRIT 33 % (39-51); HEMOGLOBIN 10.2 g/dL (13.5-17.5); LYMPHOCYTES # (AUTO) 0.7 K/uL (0.8-4.8); MEAN CORPUSCULAR HEMOGLOBIN 26 PG (26.0-33.0); MEAN CORPUSCULAR HGB CONC 31 g/dl (31.0-36.0); MEAN CORPUSCULAR VOLUME 84 fL (80-96); MONOCYTES % (AUTO) 5.3 % (2.0-12.0); NEUTROPHILS # (AUTO) 16.6 K/uL (1.8-8.9); NEUTROPHILS % (AUTO) 90.7 % (43.0-81.0); PLATELET COUNT (AUTO) 304 K/uL (150-450); RED BLOOD CELL COUNT(AUTO) 3.92 MIL/uL (4.5-6.0); RED CELL DISTRIBUTION WIDTH 19.6 % (11.5-15.0); WHITE BLOOD COUNT (AUTO) 18.3 K/uL (4.3-11.0)
[2023-05-04] MEDS: IV LR 1000 ML 1,000 ML IV PRN (18:13)
[2023-05-04] MEDS ORDERED: KETOROLAC TROMETHAMINE INJ 30 MG/ML VIAL IV SCH (18:30)
[2023-05-04 18:32] LABS: BASOPHILS # (AUTO) 0.1 K/uL (0.0-0.2); BASOPHILS % (AUTO) 0.5 % (0.0-2.0); HEMATOCRIT 33 % (39-51); HEMOGLOBIN 9.8 g/dL (13.5-17.5); LYMPHOCYTES # (AUTO) 0.4 K/uL (0.8-4.8); LYMPHOCYTES % (AUTO) 2.5 % (20.0-44.0); MEAN CORPUSCULAR HEMOGLOBIN 25 PG (26.0-33.0); MEAN CORPUSCULAR HGB CONC 30 g/dl (31.0-36.0); MEAN CORPUSCULAR VOLUME 85 fL (80-96); NEUTROPHILS # (AUTO) 15.5 K/uL (1.8-8.9); PLATELET COUNT (AUTO) 290 K/uL (150-450); RED BLOOD CELL COUNT(AUTO) 3.87 MIL/uL (4.5-6.0); WHITE BLOOD COUNT (AUTO) 17.1 K/uL (4.3-11.0)
[2023-05-04 19:09] LABS: BAND % (MANUAL) 2 % (0.0-5.0); LYMPHOCYTES % (MANUAL) 4 % (16-48); MONOCYTES % (MANUAL) 6 % (0-11.0); NEUTROPHILS % (MANUAL) 88 (42-76); PLATELET ESTIMATE ADEQU
[2023-05-04 19:10] LABS: ANISOCYTOSIS 1+; HYPOCHROMASIA 1+; OVALOCYTES 1+; STOMATOCYTES 1+
[2023-05-04] MEDS: DOBUTamine 500 MG in IV D5W 210 ML IV PRN (20:28)
[2023-05-04] MEDS: KETOROLAC TROMETHAMINE INJ 30 MG/ML VIAL IV SCH (21:21)
[2023-05-04] MEDS: HYDROMORPHONE 1 MG/1 ML DISP.SYRIN IV PRN (23:39)
[2023-05-05] VITALS (75 sets, daily range): BP systolic 77–109; BP diastolic 54–89; TEMP 96.8–98.5; O2SAT 98–100
[2023-05-05] MEDS: INSULIN REGULAR, HUMAN 100 UNIT/ML 3 ML VIAL SQ PRN ×5 (00:13→23:49)
[2023-05-05] MEDS: BLOOD SUGAR DIAGNOSTIC 1 EACH STRIP IN SCH ×5 (00:23→23:49)
[2023-05-05] MEDS: ZOSYN IVPB 2.25 G in IV D5W 50ml IV SCH ×4 (00:48→18:19)
[2023-05-05] MEDS: IV LR 1000 ML 1,000 ML IV PRN ×4 (01:15→20:52)
[2023-05-05] MEDS: KETOROLAC TROMETHAMINE INJ 30 MG/ML VIAL IV SCH ×4 (03:39→20:45)
[2023-05-05 05:48] LABS: BASOPHILS % (AUTO) 0.1 % (0.0-2.0); HEMATOCRIT 30 % (39-51); HEMOGLOBIN 9.1 g/dL (13.5-17.5); LYMPHOCYTES # (AUTO) 0.4 K/uL (0.8-4.8); LYMPHOCYTES % (AUTO) 3.1 % (20.0-44.0); MEAN CORPUSCULAR HEMOGLOBIN 26 PG (26.0-33.0); MEAN CORPUSCULAR HGB CONC 31 g/dl (31.0-36.0); MEAN CORPUSCULAR VOLUME 84 fL (80-96); MONOCYTES # (AUTO) 0.9 K/uL (0.1-1.30); MONOCYTES % (AUTO) 6.7 % (2.0-12.0); NEUTROPHILS # (AUTO) 11.6 K/uL (1.8-8.9); NEUTROPHILS % (AUTO) 90.1 % (43.0-81.0); PLATELET COUNT (AUTO) 245 K/uL (150-450); RED BLOOD CELL COUNT(AUTO) 3.51 MIL/uL (4.5-6.0); RED CELL DISTRIBUTION WIDTH 19.5 % (11.5-15.0); WHITE BLOOD COUNT (AUTO) 12.8 K/uL (4.3-11.0)
[2023-05-05 05:58] LABS: CREATININE 2.2 mg/dL (0.6-1.3); MAGNESIUM 2.6 mg/dL (1.8-2.4); POTASSIUM 3.9 mmol/L (3.5-5.1)
[2023-05-05] MEDS: HYDROMORPHONE 1 MG/1 ML DISP.SYRIN IV PRN ×2 (06:54→19:52)
[2023-05-05] MEDS ORDERED: ENOXAPARIN SODIUM 30 MG/0.3 ML DISP.SYRIN SQ SCH (07:00)
[2023-05-05] MEDS: PANTOPRAZOLE 40 MG TABLET.DR PO SCH (08:14)
[2023-05-05] MEDS: HEPARIN SODIUM, PORCINE 5000 UNITS/1 ML VIAL SQ SCH ×2 (09:54→20:36)
[2023-05-05] MEDS: DOBUTamine 500 MG in IV D5W 210 ML IV PRN (20:30)
[2023-05-06] VITALS (45 sets, daily range): BP systolic 84–116; BP diastolic 60–85; TEMP 96.2–97.7; O2SAT 98–100
[2023-05-06] MEDS: ZOSYN IVPB 2.25 G in IV D5W 50ml IV SCH ×4 (00:05→18:37)
[2023-05-06] MEDS: KETOROLAC TROMETHAMINE INJ 30 MG/ML VIAL IV SCH (02:50)
[2023-05-06] MEDS: IV LR 1000 ML 1,000 ML IV PRN (02:55)
[2023-05-06] MEDS: ONDANSETRON HCL/PF 4 MG/2 ML VIAL IVP PRN ×4 (03:06→23:02)
[2023-05-06 05:11] LABS: BASOPHILS % (AUTO) 0.2 % (0.0-2.0); EOSINOPHILS % (AUTO) 0.3 % (0.0-6.0); HEMATOCRIT 30 % (39-51); HEMOGLOBIN 9.2 g/dL (13.5-17.5); LYMPHOCYTES # (AUTO) 0.9 K/uL (0.8-4.8); LYMPHOCYTES % (AUTO) 7.7 % (20.0-44.0); MEAN CORPUSCULAR HEMOGLOBIN 26 PG (26.0-33.0); MEAN CORPUSCULAR HGB CONC 30 g/dl (31.0-36.0); MEAN CORPUSCULAR VOLUME 85 fL (80-96); MONOCYTES # (AUTO) 0.9 K/uL (0.1-1.30); MONOCYTES % (AUTO) 7.6 % (2.0-12.0); NEUTROPHILS # (AUTO) 9.9 K/uL (1.8-8.9); NEUTROPHILS % (AUTO) 84.2 % (43.0-81.0); PLATELET COUNT (AUTO) 210 K/uL (150-450); RED BLOOD CELL COUNT(AUTO) 3.58 MIL/uL (4.5-6.0); RED CELL DISTRIBUTION WIDTH 19.5 % (11.5-15.0); WHITE BLOOD COUNT (AUTO) 11.7 K/uL (4.3-11.0)
[2023-05-06 05:36] LABS: ALBUMIN 2.6 g/dL (3.4-5.0); BILIRUBIN,TOTAL 1.4 mg/dL (0.2-1.0); CALCIUM, SERUM 8.2 mg/dL (8.5-10.1); CREATININE 2.4 mg/dL (0.6-1.3); MAGNESIUM 2.5 mg/dL (1.8-2.4); PHOSPHORUS 6.8 mg/dL (2.5-4.9); POTASSIUM 3.8 mmol/L (3.5-5.1); TOTAL PROTEIN, SERUM 5.9 g/dL (6.4-8.2)
[2023-05-06] MEDS: BLOOD SUGAR DIAGNOSTIC 1 EACH STRIP IN SCH ×3 (05:50→18:27)
[2023-05-06] MEDS: INSULIN REGULAR, HUMAN 100 UNIT/ML 3 ML VIAL SQ PRN (05:51)
[2023-05-06] MEDS ORDERED: BUMETANIDE INJ 0.25 MG/ML VIAL IV ONE (08:00)
[2023-05-06] MEDS ORDERED: BUMETANIDE INJ 8 MG in IV NS 0.9% 48 ML IV ONE (08:00)
[2023-05-06] MEDS: PANTOPRAZOLE 40 MG TABLET.DR PO SCH (08:18)
[2023-05-06] MEDS: HEPARIN SODIUM, PORCINE 5000 UNITS/1 ML VIAL SQ SCH ×2 (09:15→21:19)
[2023-05-06] MEDS: DOBUTamine 500 MG in IV D5W 210 ML IV PRN (20:00)
[2023-05-07] VITALS (32 sets, daily range): BP systolic 87–117; BP diastolic 62–79; TEMP 97–97.9; O2SAT 97–100
[2023-05-07] MEDS: BLOOD SUGAR DIAGNOSTIC 1 EACH STRIP IN SCH ×5 (00:07→23:51)
[2023-05-07] MEDS: INSULIN REGULAR, HUMAN 100 UNIT/ML 3 ML VIAL SQ PRN ×2 (00:08→07:13)
[2023-05-07] MEDS: ZOSYN IVPB 2.25 G in IV D5W 50ml IV SCH ×4 (01:26→18:42)
[2023-05-07] MEDS: METOCLOPRAMIDE HCL 10 MG/2 ML VIAL IV PRN ×2 (01:34→22:34)
[2023-05-07] MEDS: ONDANSETRON HCL/PF 4 MG/2 ML VIAL IVP PRN ×4 (04:52→23:36)
[2023-05-07] MEDS: PANTOPRAZOLE 40 MG TABLET.DR PO SCH (07:47)
[2023-05-07 08:26] LABS: BASOPHILS % (AUTO) 0.4 % (0.0-2.0); EOSINOPHILS % (AUTO) 0.5 % (0.0-6.0); HEMATOCRIT 29 % (39-51); LYMPHOCYTES # (AUTO) 1.1 K/uL (0.8-4.8); LYMPHOCYTES % (AUTO) 11.4 % (20.0-44.0); MEAN CORPUSCULAR HEMOGLOBIN 26 PG (26.0-33.0); MEAN CORPUSCULAR HGB CONC 31 g/dl (31.0-36.0); MEAN CORPUSCULAR VOLUME 83 fL (80-96); MONOCYTES # (AUTO) 0.6 K/uL (0.1-1.30); MONOCYTES % (AUTO) 6.3 % (2.0-12.0); NEUTROPHILS # (AUTO) 7.7 K/uL (1.8-8.9); NEUTROPHILS % (AUTO) 81.4 % (43.0-81.0); PLATELET COUNT (AUTO) 200 K/uL (150-450); RED BLOOD CELL COUNT(AUTO) 3.45 MIL/uL (4.5-6.0); RED CELL DISTRIBUTION WIDTH 19.8 % (11.5-15.0); WHITE BLOOD COUNT (AUTO) 9.4 K/uL (4.3-11.0)
[2023-05-07 08:49] LABS: ALBUMIN 2.6 g/dL (3.4-5.0); BILIRUBIN,TOTAL 1.5 mg/dL (0.2-1.0); CREATININE 2.8 mg/dL (0.6-1.3); MAGNESIUM 2.5 mg/dL (1.8-2.4); PHOSPHORUS 6.2 mg/dL (2.5-4.9); POTASSIUM 3.5 mmol/L (3.5-5.1); TOTAL PROTEIN, SERUM 5.8 g/dL (6.4-8.2)
[2023-05-07] MEDS: HEPARIN SODIUM, PORCINE 5000 UNITS/1 ML VIAL SQ SCH ×2 (09:09→21:05)
[2023-05-07] MEDS: DOBUTamine 500 MG in IV D5W 210 ML IV PRN (11:27)
[2023-05-08] VITALS (31 sets, daily range): BP systolic 97–115; BP diastolic 66–83; TEMP 97.4–98.2; O2SAT 96–99
[2023-05-08] MEDS: ZOSYN IVPB 2.25 G in IV D5W 50ml IV SCH ×3 (01:02→12:21)
[2023-05-08 04:49] LABS: BASOPHILS % (AUTO) 0.1 % (0.0-2.0); EOSINOPHILS % (AUTO) 0.3 % (0.0-6.0); HEMATOCRIT 29 % (39-51); MEAN CORPUSCULAR HEMOGLOBIN 26 PG (26.0-33.0); MEAN CORPUSCULAR HGB CONC 32 g/dl (31.0-36.0); MEAN CORPUSCULAR VOLUME 82 fL (80-96); MONOCYTES # (AUTO) 0.7 K/uL (0.1-1.30); MONOCYTES % (AUTO) 6.6 % (2.0-12.0); NEUTROPHILS # (AUTO) 8.4 K/uL (1.8-8.9); PLATELET COUNT (AUTO) 189 K/uL (150-450); RED BLOOD CELL COUNT(AUTO) 3.48 MIL/uL (4.5-6.0); RED CELL DISTRIBUTION WIDTH 20.1 % (11.5-15.0); WHITE BLOOD COUNT (AUTO) 10.2 K/uL (4.3-11.0)
[2023-05-08] MEDS ORDERED: DOBUTamine 12.5 MG/ML VIAL IV ONE (05:01)
[2023-05-08] MEDS: DOBUTamine 500 MG in IV D5W 210 ML IV PRN ×2 (05:07→22:48)
[2023-05-08 05:12] LABS: ALBUMIN 2.6 g/dL (3.4-5.0); BILIRUBIN,DIRECT 1.4 mg/dL (0.0-0.2); BILIRUBIN,TOTAL 1.7 mg/dL (0.2-1.0); CALCIUM, SERUM 8.3 mg/dL (8.5-10.1); CREATININE 2.7 mg/dL (0.6-1.3); MAGNESIUM 2.5 mg/dL (1.8-2.4); PHOSPHORUS 5.8 mg/dL (2.5-4.9); POTASSIUM 3.2 mmol/L (3.5-5.1); TOTAL PROTEIN, SERUM 5.9 g/dL (6.4-8.2)
[2023-05-08] MEDS: ONDANSETRON HCL/PF 4 MG/2 ML VIAL IVP PRN ×3 (06:00→20:08)
[2023-05-08] MEDS: BLOOD SUGAR DIAGNOSTIC 1 EACH STRIP IN SCH ×4 (06:11→23:48)
[2023-05-08] MEDS: PANTOPRAZOLE 40 MG TABLET.DR PO SCH (07:30)
[2023-05-08] MEDS: METOCLOPRAMIDE HCL 10 MG/2 ML VIAL IV PRN ×3 (07:40→22:09)
[2023-05-08] MEDS: POTASSIUM CL. PREMIX PERIPHER. 50 ML IV SCH ×4 (08:02→11:40)
[2023-05-08] MEDS: PANTOPRAZOLE 40 MG VIAL IV SCH (09:48)
[2023-05-08] MEDS: HEPARIN SODIUM, PORCINE 5000 UNITS/1 ML VIAL SQ SCH ×2 (09:49→21:01)
[2023-05-08] MEDS ORDERED: MEROPENEM 500 MG in IV NS 0.9% 50 ML IV SCH (14:30)
[2023-05-08] MEDS: MEROPENEM 500 MG in IV NS 0.9% 100 ML IV SCH (15:18)
[2023-05-08] MEDS: CALCIUM CARBONATE 500 MG TAB.CHEW PO SCH (23:56)
[2023-05-09] VITALS (20 sets, daily range): BP systolic 96–128; BP diastolic 66–84; TEMP 97.3–97.6; O2SAT 97–99
[2023-05-09] MEDS: ONDANSETRON HCL/PF 4 MG/2 ML VIAL IVP PRN ×4 (01:51→20:25)
[2023-05-09] MEDS: MEROPENEM 500 MG in IV NS 0.9% 100 ML IV SCH ×3 (02:46→15:27)
[2023-05-09 04:42] LABS: BASOPHILS % (AUTO) 0.2 % (0.0-2.0); EOSINOPHILS # (AUTO) 0.1 K/uL (0.0-0.7); EOSINOPHILS % (AUTO) 0.8 % (0.0-6.0); HEMATOCRIT 29 % (39-51); HEMOGLOBIN 9.2 g/dL (13.5-17.5); LYMPHOCYTES # (AUTO) 1.3 K/uL (0.8-4.8); LYMPHOCYTES % (AUTO) 15.3 % (20.0-44.0); MEAN CORPUSCULAR HEMOGLOBIN 26 PG (26.0-33.0); MEAN CORPUSCULAR HGB CONC 31 g/dl (31.0-36.0); MEAN CORPUSCULAR VOLUME 83 fL (80-96); MONOCYTES # (AUTO) 0.6 K/uL (0.1-1.30); MONOCYTES % (AUTO) 7.3 % (2.0-12.0); NEUTROPHILS # (AUTO) 6.5 K/uL (1.8-8.9); NEUTROPHILS % (AUTO) 76.4 % (43.0-81.0); PLATELET COUNT (AUTO) 174 K/uL (150-450); RED BLOOD CELL COUNT(AUTO) 3.56 MIL/uL (4.5-6.0); RED CELL DISTRIBUTION WIDTH 20.1 % (11.5-15.0); WHITE BLOOD COUNT (AUTO) 8.5 K/uL (4.3-11.0)
[2023-05-09 04:53] LABS: CALCIUM, SERUM 8.3 mg/dL (8.5-10.1); CREATININE 2.4 mg/dL (0.6-1.3); MAGNESIUM 2.5 mg/dL (1.8-2.4); POTASSIUM 3.1 mmol/L (3.5-5.1)
[2023-05-09 04:58] LABS: ALBUMIN 2.6 g/dL (3.4-5.0); BILIRUBIN,DIRECT 1.6 mg/dL (0.0-0.2); TOTAL PROTEIN, SERUM 5.9 g/dL (6.4-8.2)
[2023-05-09] MEDS: BLOOD SUGAR DIAGNOSTIC 1 EACH STRIP IN SCH ×3 (06:07→17:41)
[2023-05-09] MEDS ORDERED: POTASSIUM CHLORIDE 20 MEQ TAB.PRT.SR PO SCH (09:00)
[2023-05-09] MEDS: CALCIUM CARBONATE 500 MG TAB.CHEW PO SCH ×4 (09:00→21:00)
[2023-05-09] MEDS: HEPARIN SODIUM, PORCINE 5000 UNITS/1 ML VIAL SQ SCH ×2 (09:37→20:26)
[2023-05-09] MEDS: METOCLOPRAMIDE HCL 10 MG/2 ML VIAL IV PRN (09:48)
[2023-05-09] MEDS: PANTOPRAZOLE 40 MG VIAL IV SCH (10:00)
[2023-05-09] MEDS ORDERED: PROCHLORPERAZINE EDISYLATE 10 MG/2 ML VIAL IM/IV PRN (11:00)
[2023-05-09] MEDS: POTASSIUM CL. PREMIX PERIPHER. 50 ML IV SCH ×3 (11:44→14:40)
[2023-05-09] MEDS: DOBUTamine 500 MG in IV D5W 210 ML IV PRN (15:19)
[2023-05-09] MEDS: SEVELAMER CARBONATE 800 MG TABLET PO SCH (18:16)
[2023-05-09] MEDS ORDERED: PROCHLORPERAZINE EDISYLATE 10 MG/2 ML VIAL ONE (21:41)
[2023-05-10] VITALS: BP 107/81; TEMP 97.5; O2SAT 97
[2023-05-10] MEDS: BLOOD SUGAR DIAGNOSTIC 1 EACH STRIP IN SCH ×5 (00:17→23:51)
[2023-05-10] MEDS: ONDANSETRON HCL/PF 4 MG/2 ML VIAL IVP PRN ×5 (02:56→21:57)
[2023-05-10] MEDS: MEROPENEM 500 MG in IV NS 0.9% 100 ML IV SCH ×2 (02:56→15:39)
[2023-05-10 04:00] VITALS: BP 105/79; TEMP 97.8; O2SAT 97
[2023-05-10 06:58] LABS: BASOPHILS % (AUTO) 0.3 % (0.0-2.0); EOSINOPHILS # (AUTO) 0.2 K/uL (0.0-0.7); EOSINOPHILS % (AUTO) 1.9 % (0.0-6.0); HEMATOCRIT 32 % (39-51); HEMOGLOBIN 9.9 g/dL (13.5-17.5); LYMPHOCYTES # (AUTO) 1.6 K/uL (0.8-4.8); LYMPHOCYTES % (AUTO) 17.7 % (20.0-44.0); MEAN CORPUSCULAR HEMOGLOBIN 26 PG (26.0-33.0); MEAN CORPUSCULAR HGB CONC 31 g/dl (31.0-36.0); MEAN CORPUSCULAR VOLUME 83 fL (80-96); MONOCYTES # (AUTO) 0.7 K/uL (0.1-1.30); MONOCYTES % (AUTO) 8.4 % (2.0-12.0); NEUTROPHILS # (AUTO) 6.4 K/uL (1.8-8.9); NEUTROPHILS % (AUTO) 71.7 % (43.0-81.0); PLATELET COUNT (AUTO) 183 K/uL (150-450); RED BLOOD CELL COUNT(AUTO) 3.85 MIL/uL (4.5-6.0); RED CELL DISTRIBUTION WIDTH 19.9 % (11.5-15.0)
[2023-05-10 07:20] LABS: ALBUMIN 2.7 g/dL (3.4-5.0); BILIRUBIN,DIRECT 1.6 mg/dL (0.0-0.2); CALCIUM, SERUM 8.6 mg/dL (8.5-10.1); CREATININE 2.1 mg/dL (0.6-1.3); MAGNESIUM 2.5 mg/dL (1.8-2.4); PHOSPHORUS 4.5 mg/dL (2.5-4.9); POTASSIUM 3.8 mmol/L (3.5-5.1); TOTAL PROTEIN, SERUM 6.1 g/dL (6.4-8.2)
[2023-05-10 08:00] VITALS: BP 101/76; TEMP 98; O2SAT 97
[2023-05-10] MEDS: SEVELAMER CARBONATE 800 MG TABLET PO SCH ×4 (08:00→18:11)
[2023-05-10] MEDS: HEPARIN SODIUM, PORCINE 5000 UNITS/1 ML VIAL SQ SCH ×2 (08:18→21:11)
[2023-05-10] MEDS: DOBUTamine 500 MG in IV D5W 210 ML IV PRN (09:11)
[2023-05-10] MEDS: PANTOPRAZOLE 40 MG VIAL IV SCH (10:08)
[2023-05-10 12:00] VITALS: BP 98/78; TEMP 98.3; O2SAT 97
[2023-05-10 17:00] VITALS: BP 107/76; TEMP 98.6; O2SAT 97
[2023-05-10 20:00] VITALS: BP 105/69; TEMP 97; O2SAT 97
[2023-05-11] VITALS: BP 101/76; TEMP 97.9; O2SAT 97
[2023-05-11] MEDS: HYDROMORPHONE 1 MG/1 ML DISP.SYRIN IV PRN ×4 (00:58→19:26)
[2023-05-11] MEDS: MEROPENEM 500 MG in IV NS 0.9% 100 ML IV SCH ×2 (02:21→15:55)
[2023-05-11] MEDS: DOBUTamine 500 MG in IV D5W 210 ML IV PRN ×3 (03:05→18:50)
[2023-05-11 04:00] VITALS: BP 108/70; TEMP 97.9; O2SAT 98
[2023-05-11] MEDS: BLOOD SUGAR DIAGNOSTIC 1 EACH STRIP IN SCH ×3 (06:31→18:20)
[2023-05-11 07:28] LABS: BASOPHILS % (AUTO) 0.6 % (0.0-2.0); EOSINOPHILS # (AUTO) 0.2 K/uL (0.0-0.7); EOSINOPHILS % (AUTO) 2.1 % (0.0-6.0); HEMATOCRIT 30 % (39-51); HEMOGLOBIN 9.3 g/dL (13.5-17.5); LYMPHOCYTES # (AUTO) 1.3 K/uL (0.8-4.8); LYMPHOCYTES % (AUTO) 17.3 % (20.0-44.0); MEAN CORPUSCULAR HEMOGLOBIN 26 PG (26.0-33.0); MEAN CORPUSCULAR HGB CONC 31 g/dl (31.0-36.0); MEAN CORPUSCULAR VOLUME 83 fL (80-96); MONOCYTES # (AUTO) 0.5 K/uL (0.1-1.30); MONOCYTES % (AUTO) 7.5 % (2.0-12.0); NEUTROPHILS # (AUTO) 5.3 K/uL (1.8-8.9); NEUTROPHILS % (AUTO) 72.5 % (43.0-81.0); PLATELET COUNT (AUTO) 180 K/uL (150-450); RED BLOOD CELL COUNT(AUTO) 3.62 MIL/uL (4.5-6.0); RED CELL DISTRIBUTION WIDTH 19.8 % (11.5-15.0); WHITE BLOOD COUNT (AUTO) 7.3 K/uL (4.3-11.0)
[2023-05-11 08:00] VITALS: BP 104/75; TEMP 97.9; O2SAT 99
[2023-05-11] MEDS: SEVELAMER CARBONATE 800 MG TABLET PO SCH ×4 (08:00→18:00)
[2023-05-11 08:14] LABS: CALCIUM, SERUM 8.1 mg/dL (8.5-10.1); CREATININE 1.8 mg/dL (0.6-1.3); MAGNESIUM 2.3 mg/dL (1.8-2.4); PHOSPHORUS 4.3 mg/dL (2.5-4.9); POTASSIUM 3.2 mmol/L (3.5-5.1)
[2023-05-11] MEDS: CALCIUM CARBONATE 500 MG TAB.CHEW PO SCH ×3 (08:58→20:43)
[2023-05-11] MEDS: PANTOPRAZOLE 40 MG VIAL IV SCH (09:00)
[2023-05-11] MEDS: HEPARIN SODIUM, PORCINE 5000 UNITS/1 ML VIAL SQ SCH (09:00)
[2023-05-11] MEDS: POTASSIUM CL. PREMIX PERIPHER. 50 ML IV SCH ×3 (11:54→14:35)
[2023-05-11 12:00] VITALS: BP_SYST 103; BP_SYST 92; BP_DIAS 72; BP_DIAS 78; TEMP 97.9; O2SAT 98
[2023-05-11] MEDS: INSULIN REGULAR, HUMAN 100 UNIT/ML 3 ML VIAL SQ PRN ×2 (12:01→18:20)
[2023-05-11] MEDS ORDERED: METOCLOPRAMIDE HCL 10 MG/2 ML VIAL IV SCH ×2 (12:30→14:00)
[2023-05-11 16:00] VITALS: BP 92/72; TEMP 97.3; O2SAT 98
[2023-05-11 20:00] VITALS: BP 92/73; TEMP 97.5; O2SAT 98
[2023-05-12] VITALS: BP 104/78; TEMP 97.8; O2SAT 98
[2023-05-12] MEDS: BLOOD SUGAR DIAGNOSTIC 1 EACH STRIP IN SCH ×4 (00:27→17:19)
[2023-05-12] MEDS: INSULIN REGULAR, HUMAN 100 UNIT/ML 3 ML VIAL SQ PRN ×2 (00:28→05:48)
[2023-05-12] MEDS: METOCLOPRAMIDE HCL 10 MG/2 ML VIAL IV SCH ×3 (01:30→20:42)
[2023-05-12] MEDS: HYDROMORPHONE 1 MG/1 ML DISP.SYRIN IV PRN ×3 (02:07→18:18)
[2023-05-12] MEDS: MEROPENEM 500 MG in IV NS 0.9% 100 ML IV SCH ×2 (02:14→14:09)
[2023-05-12 04:40] VITALS: BP 102/69; TEMP 97; O2SAT 98
[2023-05-12 07:48] LABS: BASOPHILS % (AUTO) 0.3 % (0.0-2.0); EOSINOPHILS # (AUTO) 0.2 K/uL (0.0-0.7); EOSINOPHILS % (AUTO) 2.3 % (0.0-6.0); HEMATOCRIT 33 % (39-51); LYMPHOCYTES # (AUTO) 0.9 K/uL (0.8-4.8); LYMPHOCYTES % (AUTO) 11.1 % (20.0-44.0); MEAN CORPUSCULAR HEMOGLOBIN 26 PG (26.0-33.0); MEAN CORPUSCULAR HGB CONC 30 g/dl (31.0-36.0); MEAN CORPUSCULAR VOLUME 84 fL (80-96); MONOCYTES # (AUTO) 0.5 K/uL (0.1-1.30); MONOCYTES % (AUTO) 6.7 % (2.0-12.0); NEUTROPHILS # (AUTO) 6.2 K/uL (1.8-8.9); NEUTROPHILS % (AUTO) 79.6 % (43.0-81.0); PLATELET COUNT (AUTO) 199 K/uL (150-450); RED BLOOD CELL COUNT(AUTO) 3.91 MIL/uL (4.5-6.0); WHITE BLOOD COUNT (AUTO) 7.8 K/uL (4.3-11.0)
[2023-05-12 07:57] LABS: ALBUMIN 2.7 g/dL (3.4-5.0); BILIRUBIN,DIRECT 0.9 mg/dL (0.0-0.2); BILIRUBIN,TOTAL 1.2 mg/dL (0.2-1.0); CALCIUM, SERUM 8.4 mg/dL (8.5-10.1); CREATININE 1.9 mg/dL (0.6-1.3); MAGNESIUM 2.6 mg/dL (1.8-2.4); PHOSPHORUS 5.5 mg/dL (2.5-4.9); POTASSIUM 3.9 mmol/L (3.5-5.1); TOTAL PROTEIN, SERUM 6.1 g/dL (6.4-8.2)
[2023-05-12 08:00] VITALS: BP 89/73; TEMP 97.5; O2SAT 91; O2SAT 98
[2023-05-12] MEDS: CALCIUM CARBONATE 500 MG TAB.CHEW PO SCH ×2 (08:58→20:42)
[2023-05-12] MEDS: SEVELAMER CARBONATE 800 MG TABLET PO SCH ×3 (08:58→17:19)
[2023-05-12] MEDS: PANTOPRAZOLE 40 MG VIAL IV SCH (08:58)
[2023-05-12] MEDS: HEPARIN SODIUM, PORCINE 5000 UNITS/1 ML VIAL SQ SCH ×2 (09:37→21:00)
[2023-05-12] MEDS: DOBUTamine 500 MG in IV D5W 210 ML IV PRN (11:14)
[2023-05-12 12:00] VITALS: BP_SYST 98; BP_DIAS 61; BP_DIAS 69; TEMP 97.9; O2SAT 100; O2SAT 98
[2023-05-12 16:00] VITALS: BP_SYST 100; BP_SYST 96; BP_DIAS 65; BP_DIAS 70; TEMP 97.4; TEMP 97.5; O2SAT 100; O2SAT 98
[2023-05-12 20:00] VITALS: BP 92/70; TEMP 96.3; O2SAT 97
[2023-05-13] VITALS (16 sets, daily range): BP systolic 42–102; BP diastolic 35–72; TEMP 95.2–97.7; O2SAT 90–100
[2023-05-13] MEDS: BLOOD SUGAR DIAGNOSTIC 1 EACH STRIP IN SCH ×4 (00:02→17:18)
[2023-05-13] MEDS: ONDANSETRON HCL/PF 4 MG/2 ML VIAL IVP PRN (02:21)
[2023-05-13] MEDS: MEROPENEM 500 MG in IV NS 0.9% 100 ML IV SCH (02:21)
[2023-05-13] MEDS: HEPARIN SODIUM, PORCINE 5000 UNITS/1 ML VIAL SQ SCH (03:37)
[2023-05-13] MEDS: HYDROMORPHONE 1 MG/1 ML DISP.SYRIN IV PRN ×2 (03:51→12:45)
[2023-05-13] MEDS: DOBUTamine 500 MG in IV D5W 210 ML IV PRN (06:26)
[2023-05-13 07:29] LABS: BASOPHILS % (AUTO) 0.6 % (0.0-2.0); EOSINOPHILS # (AUTO) 0.2 K/uL (0.0-0.7); EOSINOPHILS % (AUTO) 2.9 % (0.0-6.0); HEMATOCRIT 32 % (39-51); HEMOGLOBIN 9.7 g/dL (13.5-17.5); LYMPHOCYTES # (AUTO) 1.2 K/uL (0.8-4.8); LYMPHOCYTES % (AUTO) 17.9 % (20.0-44.0); MEAN CORPUSCULAR HEMOGLOBIN 25 PG (26.0-33.0); MEAN CORPUSCULAR HGB CONC 30 g/dl (31.0-36.0); MEAN CORPUSCULAR VOLUME 84 fL (80-96); MONOCYTES # (AUTO) 0.6 K/uL (0.1-1.30); MONOCYTES % (AUTO) 8.3 % (2.0-12.0); NEUTROPHILS # (AUTO) 4.8 K/uL (1.8-8.9); NEUTROPHILS % (AUTO) 70.3 % (43.0-81.0); PLATELET COUNT (AUTO) 196 K/uL (150-450); RED BLOOD CELL COUNT(AUTO) 3.84 MIL/uL (4.5-6.0); RED CELL DISTRIBUTION WIDTH 19.9 % (11.5-15.0); WHITE BLOOD COUNT (AUTO) 6.9 K/uL (4.3-11.0)
[2023-05-13] MEDS: METOCLOPRAMIDE HCL 10 MG/2 ML VIAL IV SCH (08:12)
[2023-05-13] MEDS: CALCIUM CARBONATE 500 MG TAB.CHEW PO SCH (08:12)
[2023-05-13] MEDS: SEVELAMER CARBONATE 800 MG TABLET PO SCH ×3 (08:12→17:18)
[2023-05-13] MEDS: PANTOPRAZOLE 40 MG VIAL IV SCH (08:12)
[2023-05-13 08:21] LABS: CALCIUM, SERUM 8.4 mg/dL (8.5-10.1); CREATININE 1.8 mg/dL (0.6-1.3); MAGNESIUM 2.5 mg/dL (1.8-2.4); PHOSPHORUS 4.9 mg/dL (2.5-4.9); POTASSIUM 3.7 mmol/L (3.5-5.1)
[2023-05-13 10:57] LABS: INR 1.09 (0.91-1.10); PARTIAL THROMBOPLASTIN TIME 35.5 SEC (24.3-34.3); PROTHROMBIN TIME 11.5 SECS (9.2-11.1)
[2023-05-13] MEDS: INSULIN REGULAR, HUMAN 100 UNIT/ML 3 ML VIAL SQ PRN ×2 (12:04→17:18)
[2023-05-13] MEDS ORDERED: IV D5/ 0.9% NACL 1,000 ML IV PRN (12:30)
[2023-05-13] MEDS ORDERED: MEROPENEM 1 G in IV NS 0.9% 100 ML IV SCH (15:00)
[2023-05-13] MEDS ORDERED: ALBUMIN 5% 250 ML IV ONE (19:22)
[2023-05-13] MEDS ORDERED: EPINEPHRINE (1:10,000) SYRINGE 1 MG/10 ML DISP.SYRIN IVP ONE (19:26)
[2023-05-13] MEDS ORDERED: AMIODARONE 150 MG/3 ML VIAL IV ONE (19:26)
[2023-05-13] MEDS ORDERED: CALCIUM CHLORIDE 1,000 MG/10 ML DISP.SYRIN IV ONE (19:26)
[2023-05-13] MEDS ORDERED: VASOPRESSIN INJ 20 UNIT/ML VIAL IV ONE (19:26)
[2023-05-13] MEDS ORDERED: EPINEPHRINE (1:1000) 5 MG in IV NS 0.9% 245 ML IV PRN (19:30)
[2023-05-13] MEDS ORDERED: IV NS 0.9% 1,000 ML IV STA (19:58)
[2023-05-13] MEDS ORDERED: ALBUMIN 5% 12.5 GM in PREMIX 1 EA IV ONE (20:00)
[2023-05-13] MEDS ORDERED: NOREPINEPHRINE 32 MG in IV NS 0.9% 218 ML IV PRN (20:00)
[2023-05-13] MEDS ORDERED: ALBUMIN 5% 12.5 GM/250 ML BOTTLE IV ONE (20:01)
[2023-05-13] MEDS ORDERED: Magnesium 1 GM/2 ML VIAL IV ONE (20:35)
[2023-05-13] MEDS ORDERED: EPINEPHRINE (1:1000) 10 MG in IV NS 0.9% 240 ML IV PRN (21:00)
== END 2023-05-13 23:44 | DRG 853 ==
LOC: ER 13:23 → TRANSITION 05-04 03:09 → MEDSG1 05-04 07:52 → ICU 05-04 17:03 → TELE-TD 05-09 17:56 → TELE1 05-11 14:26 → ICU 05-13 19:56
PROVIDERS: ADMIT Nurse Practitioner Family; ATTEND Student in an Organized Health Care Education/Training Program
PROC: 0FT40ZZ Resection of Gallbladder, Open Approach (ICD-10-PCS; principal; 2023-05-04)
PROC: 02HV33Z Insertion of Infusion Device into Superior Vena Cava, Percutaneous Approach (ICD-10-PCS; 2023-05-05)
PROC: B548ZZA Ultrasonography of Superior Vena Cava, Guidance (ICD-10-PCS; 2023-05-05)
PROC: 0DB68ZX Excision of Stomach, Via Natural or Artificial Opening Endoscopic, Diagnostic (ICD-10-PCS; 2023-05-13)
DX: A41.9 Sepsis, unspecified organism (principal); J96.01 Acute respiratory failure with hypoxia; K80.12 Calculus of gallbladder with acute and chronic cholecystitis without obstruction; I50.22 Chronic systolic (congestive) heart failure; N17.9 Acute kidney failure, unspecified; I13.0 Hypertensive heart and chronic kidney disease with heart failure and stage 1 through stage 4 chronic kidney disease, or unspecified chronic kidney disease; K82.1 Hydrops of gallbladder; I48.92 Unspecified atrial flutter; N39.0 Urinary tract infection, site not specified; E44.1 Mild protein-calorie malnutrition; E87.1 Hypo-osmolality and hyponatremia; E87.20 Acidosis, unspecified; J98.11 Atelectasis; K56.7 Ileus, unspecified; N18.9 Chronic kidney disease, unspecified; K31.7 Polyp of stomach and duodenum; E78.5 Hyperlipidemia, unspecified; E11.43 Type 2 diabetes mellitus with diabetic autonomic (poly)neuropathy; E11.22 Type 2 diabetes mellitus with diabetic chronic kidney disease; I48.91 Unspecified atrial fibrillation; N40.0 Benign prostatic hyperplasia without lower urinary tract symptoms; K21.9 Gastro-esophageal reflux disease without esophagitis; E03.9 Hypothyroidism, unspecified; Z88.8 Allergy status to other drugs, medicaments and biological substances; Z91.011 Allergy to milk products; Z79.01 Long term (current) use of anticoagulants; Z79.899 Other long term (current) drug therapy; Z79.84 Long term (current) use of oral hypoglycemic drugs; I25.10 Atherosclerotic heart disease of native coronary artery without angina pectoris; I25.2 Old myocardial infarction; J44.9 Chronic obstructive pulmonary disease, unspecified; J45.909 Unspecified asthma, uncomplicated; Z53.31 Laparoscopic surgical procedure converted to open procedure; K62.89 Other specified diseases of anus and rectum; K31.84 Gastroparesis; R74.01 Elevation of levels of liver transaminase levels; E88.09 Other disorders of plasma-protein metabolism, not elsewhere classified; E11.21 Type 2 diabetes mellitus with diabetic nephropathy; E83.39 Other disorders of phosphorus metabolism; D64.9 Anemia, unspecified; E87.6 Hypokalemia; I25.5 Ischemic cardiomyopathy; K57.30 Diverticulosis of large intestine without perforation or abscess without bleeding
CPT/HCPCS: 36415; 36569; 38221; 71045-TC; 74018; 76705-TC; 78226; 80048-TC; 80053-TC; 80076-TC; 81001; 82962-TC; 83690-TC; 83735-TC; 83880; 84100-TC; 84443-TC; 84484-TC; 85025-TC; 85730-TC; 86850-TC; 87086-TC; 88304-TC; 92950-TC; 93307-TC; 94002-TC; 94799-TC; 97110-TC; 97112-TC; 97530-TC; A4216; A4223; A6253; A9537; A9541; C1751; C9113; G0378; J0171; J0282; J0330; J0690; J0780; J1100; J1170; J1250; J1644; J1815; J1885; J2001; J2060; J2185; J2250; J2270; J2405; J2543; J2704; J2765; J3010; J3430; J3475; J3480; J3490; J7030; J7040; J7042; J7050; J7060; J7120; P9045; Q9967